=== PATIENT | male | born 1990 | race African-American/Black ===

== ENCOUNTER 2020-09-18 14:46 | Outpatient (REF) | payer OTHER, SELFPAY ==
[2020-09-18 15:32] LABS: MANUAL DIFF FLAG NO
[2020-09-18 15:33] LABS: Basophils Percent Auto 0.6 % (0-2); Eosinophils Absolute Auto 0.4 X10*3/uL (0.0-0.4); Eosinophils Percent Auto 6.9 % (0-4); Hematocrit 40.4 % (42-52); Hemoglobin 13.4 g/dl (14.0-18.0); Imm Gran Abs Auto 0.02 X10*3/uL (0.00-0.03); Imm Gran Pct Auto 0.3 % (0.0-0.4); Lymphocytes Absolute Auto 2.2 X10*3/uL (1.2-4.9); Lymphocytes Percent Auto 34.6 % (20-40); Mean Corpuscular HGB Conc 33.2 g/dl (31.0-36.0); Mean Corpuscular Hemoglobin 27.8 pg (27.0-33.0); Mean Corpuscular Volume 83.8 fL (80-98); Mean Platelet Volume 10.7 fL (9.4-12.4); Monocytes Absolute Auto 0.4 X10*3/uL (0.1-1.2); Monocytes Percent Auto 6.4 % (2-11); Neutrophils Absolute Auto 3.2 X10*3/uL (2.0-8.3); Neutrophils Percent Auto 51.2 % (45-73); Platelet Count 238 X10*3/uL (160-400); Red Blood Count 4.82 X10*6/uL (4.60-5.80); Red Cell Distribution Width 13.9 % (11.0-16.0); White Blood Count 6.3 X10*3/uL (4.8-10.8)
[2020-09-18 16:06] LABS: Anion Gap 10 (12-20); Blood Urea Nitrogen 12 mg/dL (9-16); Calcium 9.4 mg/dL (8.4-10.2); Carbon Dioxide 26 mmol/L (22-29); Chloride 105 mmol/L (96-108); Cholesterol 245 mg/dL; Estimated Glomerular Filt Rate > 60; Glucose Fasting 91 mg/dL (60-99); HDL Cholesterol 39 mg/dL; LDL Cholesterol Calculated 138 mg/dl; Potassium 4.2 mmol/l (3.3-5.1); Sodium 137 mmol/L (135-145); Triglycerides 343 mg/dL
[2020-09-22 10:02] LABS: Levetiracetam Keppra 30.5 mcg/mL (12.0-46.0)
== END 2020-09-18 14:47 | disposition home or self-care (01) ==
LOC: HO.LAB 14:46
PROVIDERS: Absent Provider Nurse Practitioner Family; PCP Internal Medicine; Visit Provider Psychiatry & Neurology Neurology
DX: G40.909 Epilepsy, unspecified, not intractable, without status epilepticus (principal); Z98.890 Other specified postprocedural states; Z09 Encounter for follow-up examination after completed treatment for conditions other than malignant neoplasm
CPT/HCPCS: 36415; 80048; 80061; 80177; 80185; 85025

== ENCOUNTER → 2020-11-07 08:12 | Outpatient (BNVA) | payer OTHER, SELFPAY | PROVIDERS: PCP Internal Medicine; Visit Provider Nurse Practitioner Family | DX: L90.5 Scar conditions and fibrosis of skin (principal); S02.6 Fracture of mandible; G57.71 Causalgia of right lower limb | CPT/HCPCS: 99202 ==

== ENCOUNTER → 2020-11-21 14:38 | Outpatient (BNVA) | payer OTHER, SELFPAY | PROVIDERS: PCP Internal Medicine; Visit Provider Nurse Practitioner Family ==

== ENCOUNTER 2021-02-07 15:20 | Outpatient (REF) | payer OTHER, SELFPAY ==
--- NOTE | ~2021-02-07 | CT_ITS ---
EXAMINATION: CT HEAD WITHOUT CONTRAST CLINICAL INFORMATION: Seizure disorder COMPARISON: Previous head CT March 2019 TECHNIQUE: Contiguous axial imaging was performed from the skull base to vertex without intravenous administration of contrast. This CT examination was performed using dose optimization techniques as appropriate, variously including the following: *Automated exposure control *Adjustment of mA and/or kV according to patient size (this includes techniques or standardized protocols for targeted exams where dose is matched to indication/reason for exam; i.e. extremities or head) *Use of iterative reconstruction technique DLP: 736 mGy-cm FINDINGS: There is no evidence of acute intracranial hemorrhage or territorial infarction. No abnormal mass effect or midline shift is seen. Hartley to white matter differentiation is well preserved. No extra-axial fluid collections are identified. The ventricles are normal in size. There is no abnormal attenuation within the brain parenchyma. The osseous structures and soft tissues are normal. There are mild inflammatory changes of the left frontal and bilateral ethmoid sinuses. The mastoid air cells and visualized portions of the paranasal sinuses are otherwise clear. CT/CT head/brain wo con IMPRESSION: No acute intracranial findings. Mild inflammatory change of the left frontal and bilateral ethmoid sinuses.
== END 2021-02-07 15:21 | disposition home or self-care (01) ==
LOC: HO.CT 15:20
PROVIDERS: PCP Internal Medicine; Visit Provider Psychiatry & Neurology Neurology
DX: G40.909 Epilepsy, unspecified, not intractable, without status epilepticus (principal)
CPT/HCPCS: 70450

== ENCOUNTER 2021-04-05 08:59 | Outpatient (RCR) | payer OTHER, SELFPAY | END 2021-05-01 15:05 | disposition home or self-care (01) | LOC: HO.WCC 08:59 | PROVIDERS: PCP Internal Medicine; Visit Provider Surgery | DX: T81.31XA Disruption of external operation (surgical) wound, not elsewhere classified, initial encounter (principal); S81.801A Unspecified open wound, right lower leg, initial encounter | CPT/HCPCS: 11042; 11045; 97597; 99212 ==

== ENCOUNTER 2021-05-02 11:53 | Outpatient (REF) | payer OTHER, SELFPAY ==
[2021-05-02 12:50] LABS: MANUAL DIFF FLAG NO
[2021-05-02 13:05] LABS: Basophils Percent Auto 0.4 % (0-2); Eosinophils Absolute Auto 0.5 X10*3/uL (0.0-0.4); Eosinophils Percent Auto 6.2 % (0-4); Hematocrit 43.1 % (42-52); Imm Gran Abs Auto 0.03 X10*3/uL (0.00-0.03); Imm Gran Pct Auto 0.4 % (0.0-0.4); Lymphocytes Absolute Auto 2.2 X10*3/uL (1.2-4.9); Lymphocytes Percent Auto 28.1 % (20-40); Mean Corpuscular HGB Conc 34.8 g/dl (31.0-36.0); Mean Corpuscular Hemoglobin 30.2 pg (27.0-33.0); Mean Corpuscular Volume 86.9 fL (80-98); Mean Platelet Volume 10.4 fL (9.4-12.4); Monocytes Absolute Auto 0.6 X10*3/uL (0.1-1.2); Monocytes Percent Auto 7.4 % (2-11); Neutrophils Absolute Auto 4.5 X10*3/uL (2.0-8.3); Neutrophils Percent Auto 57.5 % (45-73); Platelet Count 212 X10*3/uL (160-400); Red Blood Count 4.96 X10*6/uL (4.60-5.80); Red Cell Distribution Width 13.6 % (11.0-16.0); White Blood Count 7.8 X10*3/uL (4.8-10.8)
[2021-05-02 13:56] LABS: Alanine Aminotransferase 25 U/L (0-40); Albumin Level 4.7 g/dL (3.5-5.0); Alkaline Phosphatase 85 U/L (39-117); Anion Gap 13 (12-20); Aspartate Amino Transferase 19 U/L (5-37); Bilirubin Total 0.2 mg/dL (0.0-1.0); Blood Urea Nitrogen 14 mg/dL (9-16); Calcium 9.7 mg/dL (8.4-10.2); Carbon Dioxide 21 mmol/L (22-29); Chloride 106 mmol/L (96-108); Cholesterol 230 mg/dL; Estimated Glomerular Filt Rate > 60; Glucose Fasting 97 mg/dL (60-99); HDL Cholesterol 32 mg/dL; LDL Cholesterol Calculated 139 mg/dl; Potassium 4.3 mmol/L (3.3-5.1); Sodium 136 mmol/L (135-145); Total Protein 7.5 g/dL (6.5-8.0); Triglycerides 295 mg/dL
[2021-05-06 17:46] LABS: Levetiracetam Keppra 28.6 mcg/mL (12.0-46.0)
[2021-05-07 15:11] LABS: Testosterone, Free 69.2 pg/mL (35.0-155.0); Testosterone, Total 923 ng/dL (250-1100)
== END 2021-05-02 11:54 | disposition home or self-care (01) ==
LOC: HO.LAB 11:53
PROVIDERS: Absent Provider Internal Medicine; PCP Internal Medicine; Visit Provider Psychiatry & Neurology Neurology
DX: E78.2 Mixed hyperlipidemia (principal); E78.5 Hyperlipidemia, unspecified; N52.9 Male erectile dysfunction, unspecified; G40.909 Epilepsy, unspecified, not intractable, without status epilepticus
CPT/HCPCS: 36415; 80053; 80061; 80177; 80185; 84402; 84403; 85025

== ENCOUNTER 2021-06-18 13:44 | Outpatient (RCR) | payer OTHER, SELFPAY ==
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
== END 2021-07-04 13:36 | disposition home or self-care (01) ==
LOC: HO.WCC 13:44
PROVIDERS: PCP Internal Medicine; Visit Provider Physician Assistant
DX: T81.31XA Disruption of external operation (surgical) wound, not elsewhere classified, initial encounter (principal); R13.10 Dysphagia, unspecified; G40.909 Epilepsy, unspecified, not intractable, without status epilepticus; N18.9 Chronic kidney disease, unspecified; E46 Unspecified protein-calorie malnutrition
CPT/HCPCS: 11042; 70100; 99213

== ENCOUNTER 2021-09-18 08:59 | Outpatient (REF) | payer OTHER, SELFPAY ==
[2021-09-18 10:34] LABS: Alanine Aminotransferase 27 U/L (0-40); Albumin Level 4.6 g/dL (3.5-5.0); Alkaline Phosphatase 90 U/L (39-117); Anion Gap 17 (12-20); Aspartate Amino Transferase 23 U/L (5-37); Bilirubin Total < 0.2 mg/dL (0.0-1.0); Blood Urea Nitrogen 9 mg/dL (9-16); Calcium 9.6 mg/dL (8.4-10.2); Carbon Dioxide 20 mmol/L (22-29); Chloride 105 mmol/L (96-108); Cholesterol 167 mg/dL; Estimated Glomerular Filt Rate > 60; Glucose Fasting 94 mg/dL (60-99); HDL Cholesterol 38 mg/dL; LDL Cholesterol Calculated 109 mg/dl; Potassium 3.8 mmol/L (3.3-5.1); Sodium 138 mmol/L (135-145); Total Protein 7.7 g/dL (6.5-8.0); Triglycerides 101 mg/dL
[2021-09-19 22:57] LABS: Phenytoin, Free/Unbound 0.8 mg/L (1.0-2.0)
[2021-09-22 05:52] LABS: Levetiracetam Keppra 7.2 mcg/mL (12.0-46.0)
== END 2021-09-18 09:00 | disposition home or self-care (01) ==
LOC: HO.LAB 08:59
PROVIDERS: PCP Internal Medicine; Visit Provider Internal Medicine
DX: E78.5 Hyperlipidemia, unspecified (principal); R56.9 Unspecified convulsions
CPT/HCPCS: 36415; 80053; 80061; 80177; 80186

== ENCOUNTER → 2021-09-25 12:51 | Outpatient (BNVA) | payer OTHER, SELFPAY | PROVIDERS: PCP Internal Medicine; Visit Provider Nurse Practitioner Family | DX: L90.5 Scar conditions and fibrosis of skin (principal); S02.6 Fracture of mandible; S81.801D Unspecified open wound, right lower leg, subsequent encounter | CPT/HCPCS: 99212 ==

== ENCOUNTER → 2021-10-03 13:46 | Outpatient (BNVA) | payer OTHER, SELFPAY | PROVIDERS: PCP Internal Medicine; Visit Provider Urology | DX: N52.9 Male erectile dysfunction, unspecified (principal); R35.1 Nocturia | CPT/HCPCS: 51798; 99202 ==

== ENCOUNTER 2021-10-03 14:04 | Outpatient (REF) | payer OTHER, SELFPAY ==
[2021-10-03 15:19] LABS: COVID-19 Test Negative (Negative)
== END 2021-10-03 14:05 | disposition home or self-care (01) ==
LOC: HO.LAB 14:04
PROVIDERS: Visit Provider Internal Medicine
DX: Z20.822 Contact with and (suspected) exposure to COVID-19 (principal)
CPT/HCPCS: 87635; C9803

== ENCOUNTER 2021-11-02 15:00 | Outpatient (REF) | payer OTHER, SELFPAY ==
[2021-11-02 15:56] LABS: COVID-19 Test Negative (Negative); IDNOW Serial# 16C4AD1C
== END 2021-11-02 15:01 | disposition home or self-care (01) ==
LOC: HO.LAB 15:00
PROVIDERS: PCP Internal Medicine; Visit Provider Internal Medicine
DX: Z20.822 Contact with and (suspected) exposure to COVID-19 (principal)
CPT/HCPCS: 87635; C9803

== ENCOUNTER 2021-11-30 08:00 | Outpatient (RCR) | payer OTHER, SELFPAY | END 2021-11-30 09:27 | disposition home or self-care (01) | LOC: HO.WCC 08:00 | PROVIDERS: PCP Internal Medicine; Visit Provider Physician Assistant | DX: M79.661 Pain in right lower leg (principal); M62.82 Rhabdomyolysis | CPT/HCPCS: 99213 ==

== ENCOUNTER 2021-12-09 14:00 | Day surgery (SDC) | payer OTHER, SELFPAY ==
[2021-12-09] VITALS (9 sets, daily range): BP systolic 108–144; BP diastolic 65–92; PULSE 73–91; RESP 16–20; TEMP 36.1–37.1; O2SAT 96–100; BMI 27.4
--- NOTE | ~2021-12-09 | CT_ITS ---
EXAMINATION: CT ABDOMEN AND PELVIS WITHOUT CONTRAST CLINICAL INFORMATION: Abdominal pain. COMPARISON: None TECHNIQUE: Multidetector volumetric imaging was performed from the superior aspect of the liver through the pubic symphysis. Sagittal and coronal reformatted images were obtained on the technologist's workstation. This CT examination was performed using dose optimization techniques as appropriate, variously including the following: *Automated exposure control *Adjustment of mA and/or kV according to patient size (this includes techniques or standardized protocols for targeted exams where dose is matched to indication/reason for exam; i.e. extremities or head) *Use of iterative reconstruction technique DLP: 422 mGy-cm FINDINGS: LUNG BASES: The visualized lung bases are unremarkable. LIVER, GALLBLADDER, AND BILIARY TREE: The liver is normal in size, shape, and attenuation. No focal hepatic lesion or biliary ductal dilatation is present. The gallbladder is unremarkable with no evidence of radiopaque gallstones, gallbladder wall thickening, or obvious pericholecystic inflammatory changes. PANCREAS: Unremarkable. SPLEEN: Unremarkable. ADRENAL GLANDS: Unremarkable. KIDNEYS AND URETERS: The kidneys are normal in size, shape, and attenuation. No hydronephrosis, hydroureter, or calculi seen. No perinephric stranding. BLADDER: Unremarkable. GASTROINTESTINAL TRACT: The tip of the appendix is markedly thickened, measures 1.4 cm at its maximum anteroposterior dimension, shows appendicolith. Significant periappendiceal inflammatory changes are identified. Multiple radiopaque densities are seen also within the base of the cecum. There is no evidence of any periappendiceal fluid collection or extraluminal air identified. The findings are consistent with acute uncomplicated appendicitis. ABDOMINAL WALL: No significant hernia is appreciated. LYMPH NODES: Normal. VASCULAR: Unremarkable. PELVIC VISCERA: There is no free fluid and/or free air present. OSSEOUS STRUCTURES: Mild diffuse osteopenia is noted, somewhat unusual for this patient's age, indeterminate etiology. CT/CT abdomen pelvis wo con IMPRESSION: 1. Abnormal noncontrast CT scan of the abdomen and pelvis showing features of acute uncomplicated appendicitis. 2. Mild diffuse osteopenia, unusual forget this patient's age, indeterminate etiology. This critical result was discussed with Virginia Ku NP at 5:38 PM on 12/09/2021 and it was ascertained that the content and urgency of the report was understood at the time of direct communication.
--- NOTE | 2021-12-09 16:30 | ED_ITS ---
HPI - Abdominal Pain General Chief Complaint: Abdominal Pain Stated Complaint: severe abd pain Time Seen by Provider: 12/09/21 14:42 Source: patient Mode of arrival: ambulatory Limitations: language barrier History of Present Illness HPI narrative: 31-year-old male presents with 2 days of sharp intermittent epigastric pain that radiates down the left side of his abdomen. States that it feels like there is ants crawling around and pinching him inside. MD elicited complaint: abdominal pain Pertinent past history: constipation Onset (ago): day(s) (2) Pain Consistency: intermittent Location: epigastric, LUQ and LLQ Severity: severe Pain scale (0-10): 10 Quality: aching, sharp and other (Pinching) Migration to: no migration Exacerbating factors: eating and movement Relieving factors: nothing Context: history of similar episodes Associated symptoms: denies other symptoms Treatments prior to arrival: antacids Related Data Home Medications Medication Instructions Recorded Confirmed gabapentin 600 mg tablet 600 mg PO TID PRN 11/07/20 12/09/21 aspirin 81 mg chewable tablet 81 mg PO DAILY 12/09/21 12/09/21 levetiracetam 1,000 mg tablet 1,000 mg PO BID 12/09/21 12/09/21 sildenafil 100 mg tablet 100 mg PO DAILY PRN 12/09/21 12/09/21 Previous Rx's Medication Instructions Recorded famotidine 20 mg tablet 20 mg PO BID 90 Days #180 tab 09/21/20 calcium carbonate 200 mg calcium 200 mg PO TID PRN #90 tab 04/29/21 (500 mg) chewable tablet phenytoin sodium extended 100 mg 200 mg PO BID 90 Days #360 cap 05/29/21 capsule atorvastatin 40 mg tablet 40 mg PO BEDTIME 90 Days #90 tab 06/07/21 fenofibrate 54 mg tablet 54 mg PO DAILY 90 Days #90 tab 06/07/21 Allergies Allergy/AdvReac Type Severity Reaction Status Date / Time iv contrast AdvReac Severe vomiting Uncoded 12/09/21 19:41 Review of Systems Review of Systems Constitutional: No Weight loss, No Fever, No Chills, No Night Sweats, No Fatigue, No Malaise ENT/Mouth: No Hearing loss, No Ear Pain, No Nasal Congestion, No Sinus Pain, No Hoarseness, No sore throat, No Rhinorrhea, No Swallowing Difficulty Eyes: No Eye Pain, No Swelling, No Redness, No Foreign Body, No Discharge, No Vision Changes Cardiovascular: No Chest Pain, No SOB, No Dyspnea on Exertion, No Orthopnea, No Edema, No Palpitations Respiratory: No Cough, No Sputum, No Wheezing, No Smoke Exposure, No Dyspnea Gastrointestinal: No Nausea, no Vomiting, positive Diarrhea, positive abdominal Pain, No Hematochezia, No Melena Genitourinary: no irregular bleeding, No Dysuria, No Urinary Frequency, No Hematuria, No Urinary Incontinence, No Urgency, No Flank Pain, No Urinary Flow Changes, No Hesitancy Musculoskeletal: No joint pain, No Myalgias, No Joint Swelling Skin: No Skin Lesions, No rash Neuro: No Weakness, No Numbness, No Paresthesias, No Loss of Consciousness, No Dizziness, No Headache Psych: No Anxiety/Panic, No Depression, No SI/HI/AH/VH, No Social Issues Heme/Lymph: No Bruising, No Bleeding,No Lymphadenopathy Endocrine: No Polyuria, No Polydipsia, No Temperature Intolerance Yes all other systems are reviewed and are negative [facility] Past Medical History Attestation statement: The following information was validated with the patient. Source: old records reviewed Medical History Abnormal vision Constipation by delayed colonic transit Erectile dysfunction GERD (gastroesophageal reflux disease) Leg pain Leg wound, right Mandibular fracture Mixed hyperlipidemia Seizures Surgical History History of mandibular surgery History of tracheostomy Status post surgery Family History Family History Father Medical history unknown Mother No problems noted. Social History Social History Housing: Apartment Alcohol intake: former Patient Tobacco Use Status: Never used Tobacco e-Cigarette/Vaping Use: Never Used Second Hand Smoke Exposure: No service: No Current occupational status: disabled Physical Exam ED Vital Signs: Vital Signs - 24 hr 12/09/21 14:06 Temperature 97 F Pulse Rate 84 Respiratory Rate 16 Blood Pressure 121/73 Pulse Oximetry 98 BMI result Body Mass Index 27.4 Appearance: Alert. Oriented X3. No acute distress. Eyes: Pupils equal, round and reactive to light. ENT: Pharynx normal. Neck: Normal inspection. Neck supple. CVS: Normal heart rate and rhythm. Pulses normal. Respiratory: No respiratory distress. Breath sounds normal. Abdomen: Soft and diffusely tender. Skin: Skin warm and dry. Normal skin color. Normal skin turgor. Extremities: No lower extremity edema. Moves all extremities against resistance. Neuro: No motor deficit. No sensory deficit. Cranial nerves 2-12 intact. Course Course Course Narrative: 31-year-old male presents with 10/10 epigastric pain radiating to the left upper quadrant down to his left side. States that he has had watery stools and tried to take a laxative to help him pass stools, with poor effect. 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 He is not reporting fevers or chills, is able to eat and swallow without difficulty. Will order CT scan of abdomen pelvis. Labs are pending. 17:[address] scan positive for acute appendicitis. 17:[address] Joseph regarding CT scan findings. Discussion with patient regarding need for emergent surgery. glaciologist utilized for all correspondence. MDM - Abdominal Pain Differential Diagnosis Differential diagnosis: Likely abdominal pain, acute appendicitis, constipation, diverticulitis and small bowel obstruction Medical Records Attestation: I reviewed the patient's medical records. Lab Data Attestation: I reviewed the patient's lab results. Result diagrams: 12/09/21 17:18 12/09/21 17:18 Labs: Lab Results 12/09/21 12/09/21 12/09/21 Range/Units 17:18 17:18 17:18 WBC 13.7 H (4.8-10.8) X10*3/uL RBC 4.97 (4.60-5.80) X10*6/uL Hgb 15.2 (14.0-18.0) g/dl Hct 43.7 (42.0-52.0) % MCV 87.9 (80.0-98.0) fL MCH 30.6 (27.0-33.0) pg MCHC 34.8 (31.0-36.0) g/dl RDW 12.9 (11.0-16.0) % Plt Count 186 (160-400) X10*3/uL MPV 10.0 (9.4-12.4) fL Immature Gran % (Auto) 0.4 (0.0-0.4) % Neut % (Auto) 78.6 H (45-73) % Lymph % (Auto) 14.0 L (20-40) % [place] % (Auto) 5.8 (2-11) % Eos % (Auto) 1.0 (0-4) % Baso % (Auto) 0.2 (0-2) % Lymph # (Auto) 1.9 (1.2-4.9) X10*3/uL [place] # (Auto) 0.8 (0.1-1.2) X10*3/uL Eos # (Auto) 0.1 (0.0-0.4) X10*3/uL Baso # (Auto) 0.0 (0.0-0.2) X10*3/uL Abs Immat Gran (auto) 0.05 H (0.00-0.03) X10*3/uL Absolute Neuts (auto) 10.8 H (2.0-8.3) x10*3/uL Absolute Nucleated RBC 0.000 (0.0-0.012) X10*3/uL Nucleated RBC % (auto) 0.0 (0.0-0.2) /100WBC Sodium 138 (135-145) mmol/L Potassium 4.2 (3.3-5.1) mmol/L Chloride 103 (96-108) mmol/L Carbon Dioxide 27 (22-29) mmol/L Anion Gap 12 (12-20) BUN 7 L (9-16) mg/dL Creatinine 0.85 (0.5-1.4) mg/dL Estim Creat Clear Calc 109.8 Estimated GFR > 60 Random Glucose 94 (60-115) mg/dL Calcium 9.7 (8.4-10.2) mg/dL Lipase 19 (8-78) U/L Imaging Data CT abdomen pelvis: Attestation: I personally reviewed and interpreted this imaging study as follows: Radiologist's impression: FINDINGS: LUNG BASES: The visualized lung bases are unremarkable.? LIVER, GALLBLADDER, AND BILIARY TREE: The liver is normal in size, shape, and attenuation. No focal hepatic lesion or biliary ductal dilatation is present. The gallbladder is unremarkable with no evidence of radiopaque gallstones, gallbladder wall thickening, or obvious pericholecystic inflammatory changes.? PANCREAS: Unremarkable.? SPLEEN: Unremarkable.? ADRENAL GLANDS: Unremarkable.? KIDNEYS AND URETERS: The kidneys are normal in size, shape, and attenuation. No hydronephrosis, hydroureter, or calculi seen. No perinephric stranding. ? BLADDER: Unremarkable.? GASTROINTESTINAL TRACT: The tip of the appendix is markedly thickened, measures 1.4 cm at its maximum anteroposterior dimension, shows appendicolith. Significant periappendiceal inflammatory changes are identified. Multiple radiopaque densities are seen also within the base of the cecum. There is no evidence of any periappendiceal fluid collection or extraluminal air identified. The findings are consistent with acute uncomplicated appendicitis. ABDOMINAL WALL: No significant hernia is appreciated.? LYMPH NODES: Normal. VASCULAR: Unremarkable. PELVIC VISCERA: There is no free fluid and/or free air present.? OSSEOUS STRUCTURES: Mild diffuse osteopenia is noted, somewhat unusual for this patient's age, indeterminate etiology.? CT/CT abdomen pelvis wo con IMPRESSION: ? 1. Abnormal noncontrast CT scan of the abdomen and pelvis showing features of acute uncomplicated appendicitis. 2. Mild diffuse osteopenia, unusual forget this patient's age, indeterminate etiology. ? This critical result was discussed with Virginia Hein PERMANENT MOLD SUPERVISOR at 5:38 PM on 12/09/2021 and it was ascertained that the content and urgency of the report was understood at the time of direct communication. ? ECG Data Attestation: I personally reviewed and interpreted this ECG as follows: ECG interpretation date: 12/09/21 ECG interpretation time: 17:51 Prior ECG tracings: available for review Interpretation: Vent. rate 72 BPM DE interval 168 ms QRS duration 90 ms QT/QTc 356/389 ms P-R-T axes 49 85 16 Normal sinus rhythm Normal ECG When compared with ECG of 07-APR-2019 12:25, No significant change was found Critical Care Time Critical Care Time Critical Care Time: Yes Total Critical Care Time: 35 Attestation: I have personally provided critical care time exclusive of time spent on separately billable procedures. Time includes review of laboratory data, radiology results, discussion with consultants, and monitoring for potential decompensation. Interventions were performed as documented. Discharge Plan Discharge Clinical Impression: Acute appendicitis Patient Disposition: Admitted As Inpatient Interventions: Admission Worksheet (ED) Last Done: 12/09/21 19:43 Discharge Date/Time: 12/09/21 19:45
[2021-12-09 17:23] LABS: MANUAL DIFF FLAG NO
[2021-12-09 17:24] LABS: Basophils Percent Auto 0.2 % (0-2); Eosinophils Absolute Auto 0.1 X10*3/uL (0.0-0.4); Hematocrit 43.7 % (42.0-52.0); Hemoglobin 15.2 g/dl (14.0-18.0); Imm Gran Abs Auto 0.05 X10*3/uL (0.00-0.03); Imm Gran Pct Auto 0.4 % (0.0-0.4); Lymphocytes Absolute Auto 1.9 X10*3/uL (1.2-4.9); Mean Corpuscular HGB Conc 34.8 g/dl (31.0-36.0); Mean Corpuscular Hemoglobin 30.6 pg (27.0-33.0); Mean Corpuscular Volume 87.9 fL (80.0-98.0); Monocytes Absolute Auto 0.8 X10*3/uL (0.1-1.2); Monocytes Percent Auto 5.8 % (2-11); Neutrophils Absolute Auto 10.8 x10*3/uL (2.0-8.3); Neutrophils Percent Auto 78.6 % (45-73); Platelet Count 186 X10*3/uL (160-400); Red Blood Count 4.97 X10*6/uL (4.60-5.80); Red Cell Distribution Width 12.9 % (11.0-16.0); White Blood Count 13.7 X10*3/uL (4.8-10.8)
--- NOTE | 2021-12-09 17:42 | ECG_ITS ---
Test Reason : abdominal pain Blood Pressure : / mmHG Vent. Rate : 072 BPM Atrial Rate : 072 BPM P-R Int : 168 ms QRS Dur : 090 ms QT Int : 356 ms P-R-T Axes : 049 085 016 degrees QTc Int : 389 ms Normal sinus rhythm Normal ECG When compared with ECG of 07-APR-2019 12:25, No significant change was found Referred By: Virginia Hein Electronically Signed By:ALLIE LEONARDO
[2021-12-09 17:44] LABS: Anion Gap 12 (12-20); Blood Urea Nitrogen 7 mg/dL (9-16); Calcium 9.7 mg/dL (8.4-10.2); Carbon Dioxide 27 mmol/L (22-29); Chloride 103 mmol/L (96-108); Creatinine Clr Calc Pharmacy 109.8; Estimated Glomerular Filt Rate > 60; Glucose Random 94 mg/dL (60-115); Potassium 4.2 mmol/L (3.3-5.1); Sodium 138 mmol/L (135-145)
[2021-12-09 17:45] LABS: Lipase 19 U/L (8-78)
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
[2021-12-09 19:26] LABS: INTERNATIONAL NORM RATIO 1.2 (0.9-1.1); Prothrombin Time 13.3 SEC (9.9-13.0)
[2021-12-09 19:28] LABS: Partial Thromboplastin Time 37.8 SEC (24.1-38.0)
[2021-12-09 19:35] LABS: COVID-19 Test Negative (Negative); IDNOW Serial# 16C4AD1C
--- NOTE | 2021-12-09 19:43 | PHA.MEDREC ---
Pharmacy Consult ? Medication Reconciliation Pharmacy has completed the medication reconciliation.COMPLETED WITH USE OF MEN'S AND BOYS' CLOTHING SALESPERSON, PT AND CAREGIVER. PT COULD NOT TOLERATE THE LIQUID PRESCRIPTIONS HE WAS ORDERED SO IS BACK ON THE TABLETS. HE CRUSHES THE ONES HE CAN. HE KNOWS NOT TO CRUSH PHENYTOIN. IT IS SMALL ENOUGH FOR HIM TO SWALLOW
--- NOTE | 2021-12-09 19:51 | HO.ANESPROP2 ---
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 Family history of problems with anesthesia: No Surgical History Surgical History History of mandibular surgery History of tracheostomy Status post surgery History of Problems with Anesthesia: No Social History Social History Housing: Apartment Alcohol intake: former Patient Tobacco Use Status: Never used Tobacco e-Cigarette/Vaping Use: Never Used Second Hand Smoke Exposure: No service: No Current occupational status: disabled Meds Allergies Allergy/AdvReac Type Severity Reaction Status Date / Time iv contrast AdvReac Severe vomiting Uncoded 12/09/21 19:41 Active Medications: Current Medications Lactated Ringer's (Lr) 1,000 mls @ 100 mls/hr IVCONT .Q10H GONZALEZ Ondansetron HCl (Ondansetron Hcl 4 Mg/2 Ml Vial) 4 mg IVPUSH QID PRN PRN Reason: Nausea Home Medications Medication Instructions Recorded Confirmed Last Taken Type gabapentin 600 mg tablet 600 mg PO TID PRN 11/07/20 12/09/21 Unknown History aspirin 81 mg chewable tablet 81 mg PO DAILY 12/09/21 12/09/21 Unknown History levetiracetam 1,000 mg tablet 1,000 mg PO BID 12/09/21 12/09/21 Unknown History sildenafil 100 mg tablet 100 mg PO DAILY PRN 12/09/21 12/09/21 Unknown History Exam Exam Date and Time: December 09, 20211950 Height,Weight and Vital Signs: Height 5 ft 3 in Weight 70.307 kg Last Vital Signs Temp 98.4 F 12/09/21 18:53 Pulse 73 12/09/21 18:53 Resp 16 12/09/21 18:53 BP 108/65 12/09/21 18:53 Pulse Ox 97 12/09/21 18:53 Pertinent Lab Results Pertinent Lab Results: Laboratory Tests 12/09/21 12/09/21 12/09/21 17:18 17:18 17:18 WBC 13.7 H RBC 4.97 Hgb 15.2 Hct 43.7 MCV 87.9 MCH 30.6 MCHC 34.8 RDW 12.9 Plt Count 186 MPV 10.0 Immature Gran % (Auto) 0.4 Neut % (Auto) 78.6 H Lymph % (Auto) 14.0 L Johnson % (Auto) 5.8 Eos % (Auto) 1.0 Baso % (Auto) 0.2 Lymph # (Auto) 1.9 Johnson # (Auto) 0.8 Eos # (Auto) 0.1 Baso # (Auto) 0.0 Abs Immat Gran (auto) 0.05 H Absolute Neuts (auto) 10.8 H Absolute Nucleated RBC 0.000 Nucleated RBC % (auto) 0.0 PT INR APTT Sodium 138 Potassium 4.2 Chloride 103 Carbon Dioxide 27 Anion Gap 12 BUN 7 L Creatinine 0.85 Estim Creat Clear Calc 109.8 Estimated GFR > 60 Random Glucose 94 Lactic Acid Calcium 9.7 Lipase 19 COVID-19 (JENNIFER) COVID-19 Clin Com 12/09/21 12/09/21 12/09/21 19:12 19:12 19:12 WBC RBC Hgb Hct MCV MCH MCHC RDW Plt Count MPV Immature Gran % (Auto) Neut % (Auto) Lymph % (Auto) Johnson % (Auto) Eos % (Auto) Baso % (Auto) Lymph # (Auto) Johnson # (Auto) Eos # (Auto) Baso # (Auto) Abs Immat Gran (auto) Absolute Neuts (auto) Absolute Nucleated RBC Nucleated RBC % (auto) PT 13.3 H INR 1.2 H APTT 37.8 Sodium Potassium Chloride Carbon Dioxide Anion Gap BUN Creatinine Estim Creat Clear Calc Estimated GFR Random Glucose Lactic Acid 1.0 Calcium Lipase COVID-19 (JENNIFER) COVID-19 Clin Com 12/09/21 19:12 WBC RBC Hgb Hct MCV MCH MCHC RDW Plt Count MPV Immature Gran % (Auto) Neut % (Auto) Lymph % (Auto) Johnson % (Auto) Eos % (Auto) Baso % (Auto) Lymph # (Auto) Johnson # (Auto) Eos # (Auto) Baso # (Auto) Abs Immat Gran (auto) Absolute Neuts (auto) Absolute Nucleated RBC Nucleated RBC % (auto) PT INR APTT Sodium Potassium Chloride Carbon Dioxide Anion Gap BUN Creatinine Estim Creat Clear Calc Estimated GFR Random Glucose Lactic Acid Calcium Lipase COVID-19 (JENNIFER) Negative COVID-19 Clin Com See Note Airway Mallampati Class: III Neck ROM: Full Assessment and Plan Assessment Anesthesia Assessment: Anesthesia Plan Discussed and Chart Reviewed Final Anesthetic Review Family History of Problems with Anesthesia: No History of Problems with Anesthesia: No NPO: Yes ASA Class: III and Emergency Final Preanesthetic Review: No Changes in Pt Med Stat, Meds/Allgs Chart Reviewed, Consent Obtained/Reviewed and Anes Risks/Benef Reviewed Patient Risk: Intermediate Procedure Risk: Intermediate Anesthetic Plan Anesthetic Plan: GA Disposition: Standard PACU
--- NOTE | 2021-12-09 20:53 | W.PM.OPN ---
Operative Note Operative Note Date of Service: 12/09/21 Narrative: Preoperative diagnosis: Acute appendicitis Postoperative diagnosis: Same Procedure: Laparoscopic appendectomy Surgeon: Mook Joseph MD Office Systems Technology Instructor:none Anesthesia: General endotracheal Indications for procedure: 31-year-old male patient with a 2 day history of abdominal pain in the left lower and right lower quadrants found to be tender in the right lower quadrant over McBurney's point. Workup revealed an elevated WBC and CT of the abdomen revealed a thickened inflamed appendix suggestive of acute appendicitis Operative findings: Acute appendicitis with the appendix located in a retrocecal location; no evidence of perforation or abscess. Specimen: Appendix Estimated blood loss: 2 cc Complications: None Procedure details: Patient was brought to the OR and placed in a supine position. After administering general anesthesia the patient's abdomen was prepped with ChloraPrep and draped in a sterile fashion. A surgical time-out was called and consent confirmed. Patient received preoperative antibiotics and Venodyne boots were in place. Local anesthesia consisting of 0.75% Sensorcaine with epinephrine was infiltrated in periumbilical region. A 5 mm incision was made below the umbilicus and carried down through subcutaneous tissue. A Veress needle was then inserted while elevating abdominal cavity with towel clips. After a positive drop test the abdomen was insufflated to a pressure of 15 mm of mercury. The Veress needle was removed and a 5 mm trocar inserted. The camera was then inserted in the abdomen explored. A 2nd 5 mm trocars placed in the lower midline. A 12 mm trocar was then placed in the left lower quadrant. The patient was then placed in a Trendelenburg position and rotated to the left. The appendix was identified in the right lower quadrant and brought up using blunt dissecting clamps. The mesentery of the appendix was then divided using the LigaSure. The appendiceal artery was cauterized and divided using the LigaSure. Dissection was continued down to the base of the cecum. An Endo-JAMES stapler with a purple reload was then used to divide the appendix at the base with the cecum. The appendix was then placed in Endo-Catch bag and brought out through the left lower quadrant incision. The abdomen was then irrigated with saline solution and suctioned dry. Wounds were checked for hemostasis. CO2 was then evacuated from the abdominal cavity and all trocars removed. Fascia was closed in the left lower quadrant incision using a [id number] 0 Polysorb suture. Skin was closed at all incisions using a subcuticular 4-0 Polysorb suture. Steri-Strips 2 x 2 gauze and Tegaderm were then applied. The patient tolerated the procedure well. Sponge, instrument, needle counts reported as correct. The patient was transferred to PACU in stable condition.
[2021-12-09] MEDS: ondansetron HCL 4 MG/2 ML VIAL IVPUSH (21:15)
[2021-12-09] MEDS: fentaNYL citrate/PF 100 MCG/2 ML VIAL 50 MCG IVPUSH ×2 (21:18→21:25)
--- NOTE | 2021-12-09 21:51 | PC.NURSE ---
PATIENT CALLING FAMILY. BRICK VENEER MAKER UPDATED PATIENT INSISTING LEAVE AMA. FAMILY ATTEMPT TO ENCOURAGE STAY IN HOSPITAL. PATIENT PULLING AT IV TUBING AND MONITOR TO REMOVE. I AM OUT OF HERE . FAMILY COMING TO FOLDING MACHINE TENDER PATIENT.
--- NOTE | 2021-12-09 21:59 | PC.NURSE ---
I WAS IN PAIN FOR 2 DAYS. YOU REMOVED THE PAIN. I WANT TO GO HOME
--- NOTE | 2021-12-09 22:12 | PC.NURSE ---
221 PATIENT TRANSPORTED TO FRONT ENTRANCE VIA WHEELCHAIR RELATED TO PHYSICAL DISABILITY. PATIENT GOT INTO FATHER'S CAR. ATTEMPT MADE RN, TANK WAGON OPERATOR, SUPERVISOR RECORD PRESS TO INFORM FATHER OF NEED TO BRING PATIENT TO E.R. WITH ANY COMPLICATIONS. PATIENT HOPPED INTO EVENING OR NIGHT NURSE SUPERVISOR'S SEAT AND PROCEEDED TO LEAVE IN MOTOR VEHICLE. SECURITY NOTIFIED OF PATIENT LEAVING AMA AND TAKING FAMILY VEHICLE. PATIENT RETURNED MOMENTS LATER AND FAMILY TAKING OVER CARE.
== END 2021-12-09 22:10 | disposition left against medical advice (07) ==
LOC: HO.ED 18:36 → HO.SSS 12-10 03:23
PROVIDERS: Nurse Practitioner Family; Emergency Provider Internal Medicine; Visit Provider Surgery
PROC: 0DTJ4ZZ Resection of Appendix, Percutaneous Endoscopic Approach (ICD-10-PCS; CPT 44970; principal; 2021-12-09 18:50)
DX: K35.80 Unspecified acute appendicitis (principal); K59.00 Constipation, unspecified; H53.9 Unspecified visual disturbance; R56.9 Unspecified convulsions; K21.9 Gastro-esophageal reflux disease without esophagitis; E78.5 Hyperlipidemia, unspecified; Z98.890 Other specified postprocedural states; Z20.822 Contact with and (suspected) exposure to COVID-19; Z91.041 Radiographic dye allergy status; Z87.81 Personal history of (healed) traumatic fracture; Z79.82 Long term (current) use of aspirin; Z79.02 Long term (current) use of antithrombotics/antiplatelets; Z79.899 Other long term (current) drug therapy
CPT/HCPCS: 44970; 36415; 74176; 80048; 80053; 83605; 83690; 85025; 85610; 85730; 87040; 87635; 88304; 93005; 96361; 96365; 96375; 99285; 99291; J0131; J1100; J1170; J1885; J2250; J2270; J2405; J3010

== ENCOUNTER 2021-12-09 23:37 | Inpatient (IN) | payer OTHER, SELFPAY ==
[2021-12-10] VITALS (12 sets, daily range): BP systolic 108–131; BP diastolic 65–94; PULSE 64–91; RESP 14–20; TEMP 36.4–37.3; O2SAT 95–98; BMI 27.4
--- NOTE | 2021-12-10 00:12 | ECG_ITS ---
Test Reason : chest pain Blood Pressure : / mmHG Vent. Rate : 083 BPM Atrial Rate : 083 BPM P-R Int : 160 ms QRS Dur : 092 ms QT Int : 356 ms P-R-T Axes : 056 085 025 degrees QTc Int : 418 ms Normal sinus rhythm Normal ECG No significant changes when compared with the previous EKG of 09 december 2021. Referred By: Generic ED Physician Electronically Signed By:ALLIE LEONARDO
--- NOTE | 2021-12-10 01:30 | ED_ITS ---
HPI - General Adult General Chief complaint: General Medical Stated complaint: Pain/Bleeding after Surgery Time Seen by Provider: 12/10/21 01:30 Source: patient and family Mode of arrival: ambulatory Limitations: language barrier ( Salvadorean speaking only, mining engineer used) History of Present Illness HPI narrative: 31-year-old male who was admitted on 12/09/2021 for acute appendicitis, he had a laparoscopic appendectomy performed by Dr. Joseph. Apparently, the surgeon wanted to keep the patient overnight for pain management however the patient felt better and wanted to go home. According to his father, the patient left the hospital at around 22:00 hours. When he got home and lie down at around 23:00 hours, his pain was severe. He states that since then he has had constant, severe, diffuse abdominal pain. The pain is worse however in the right upper and right lower quadrants of his abdomen. He describes the pain as a constant, stabbing/sharp pain which is 10/10. The pain does radiate to his ri ght shoulder. He states that since leaving the hospital he has not had any flatus and he has not had a bowel movement. He does feel distended. he denied fever, nausea, vomiting. He states he does feel bloated. The patient states that he took his seizure medications yesterday morning but did not take his evening doses yet. The patient takes Keppra 1000 mg twice a day and diltiazem 200 mg twice a day. Related Data Home Medications Medication Instructions Recorded Confirmed gabapentin 600 mg tablet 600 mg PO TID PRN 11/07/20 12/10/21 aspirin 81 mg chewable tablet 81 mg PO DAILY 12/09/21 12/10/21 levetiracetam 1,000 mg tablet 1,000 mg PO BID 12/09/21 12/10/21 sildenafil 100 mg tablet 100 mg PO DAILY PRN 12/09/21 12/10/21 Previous Rx's Medication Instructions Recorded famotidine 20 mg tablet 20 mg PO BID 90 Days #180 tab 09/21/20 calcium carbonate 200 mg calcium 200 mg PO TID PRN #90 tab 04/29/21 (500 mg) chewable tablet phenytoin sodium extended 100 mg 200 mg PO BID 90 Days #360 cap 05/29/21 capsule atorvastatin 40 mg tablet 40 mg PO BEDTIME 90 Days #90 tab 06/07/21 fenofibrate 54 mg tablet 54 mg PO DAILY 90 Days #90 tab 06/07/21 Allergies Allergy/AdvReac Type Severity Reaction Status Date / Time iv contrast AdvReac Severe vomiting Uncoded 12/09/21 19:41 Review of Systems Review of Systems: Yes all other systems are reviewed and are negative [facility] Past Medical History Medical History Abnormal vision Constipation by delayed colonic transit Erectile dysfunction GERD (gastroesophageal reflux disease) Leg pain Leg wound, right Mandibular fracture Mixed hyperlipidemia Seizures Surgical History History of mandibular surgery History of tracheostomy Status post surgery Family History Family History Father Medical history unknown Mother No problems noted. Social History Social History Housing: Apartment Alcohol intake: former Patient Tobacco Use Status: Never used Tobacco e-Cigarette/Vaping Use: Never Used Second Hand Smoke Exposure: No Advance Directives: No Advance Directives Information Provided: Yes service: No Current occupational status: disabled Physical Exam ED Vital Signs: Vital Signs - 24 hr 12/10/21 00:06 Temperature 99.1 F Pulse Rate 87 Respiratory Rate 18 Blood Pressure 110/65 Pulse Oximetry 97 BMI result Body Mass Index 27.4 Const General: cooperative and no acute distress Orientation/consciousness: oriented to person and oriented to place Limitations: no limitations [facility] Head: Yes normal to inspection, Yes normocephalic and Yes atraumatic Ears: external ears normal General nose exam: Normal external nose present Face and sinus: Yes normal facial exam Mouth: Normal oral and palatal mucosa present Throat: Yes posterior oropharynx normal Eyes General: appearance normal, both eyes and all related structures Pupils: Equal, round and reactive pupils present Neck Neck: Yes normal visual inspection, Yes no lymphadenopathy, Yes trachea midline and Yes supple Chest Chest palpation & inspection: normal inspection of the chest and normal palpation of entire chest wall Resp Effort & Inspection: normal respiratory effort and able to speak in complete sentences Auscultation: clear to auscultation bilaterally Cardio Rate: regular rate Rhythm: regular rhythm Heart sounds: S1 normal heart sound present, S2 normal heart sound present and no murmurs GI Other: Patient's abdomen appears to be slightly distended, the laparoscopic sites were dressed with gauze, the suprapubic site has some blood on the gauze but does not appear to be actively bleeding, patient does have bowel sounds, he is diffusely tender and has significant voluntary guarding, his increased tenderness with palpation of the right upper quadrant and right lower quadrant. Rectal Exam - Male: Yes Abnormal stool present General: Yes no CVA tenderness Back/Spine/Pelvis Back: no CVA tenderness Skin General skin exam: no rashes or lesions noted Neuro General: oriented to person and oriented to place Cranial nerves: Yes CN's II-XII intact bilaterally and Yes Equal, round and reactive pupils present Cognition (Neuro): normal cognition Motor exam (neuro): 5/5 motor strength present throughout Extrem General: Yes normal to inspection Psych Appearance: grossly normal Speech and movement: Normal speech and movement present Affect: normal affect Attitude: cooperative Thought process: Normal thought process present Thought content: Normal thought content present Course Course Course Narrative: 31-year-old male who had a laparoscopic appendctomy on 12/09/2021. After the surgery, the surgeon wanted to keep the patient in the hospital for pain management however the patient stated that he felt better and went home after being home for approximately 1 hour he had increased pain and return to the emergency department. At the time of my evaluation, the patient has diffuse abdominal tenderness with increased tenderness with palpation of the right upper and right lower quadrants with significant voluntary guarding. He states that his pain does radiate to his right shoulder. The patient has normal bowel sounds and does appear to be slightly distended. My impression is that his exam is consistent with focal postoperative pain. I did order laboratory evaluation to include a CBC, CMP, lipase. Patient was ordered to get morphine 4 mg IV and Zofran 4 mg IV. He was given his anti seizure medicine Keppra 1000 mg and Dilantin 200 mg orally. I will discuss admission with the covering surgeon once the patient's laboratory evaluation is available. Patient was also ordered to get lactated Ringer's at 125 cc/hour. 0228: I did discuss the patient's presentation with the covering surgeon, Dr. Joseph and he agreed to admit the patient to the hospital for further pain management and evaluation. 0403: Laboratory evaluation: Elevated WBC [id number] , CMP and lipase were unremarkable. Medical Decision Making Lab Data Result diagrams: 12/10/21 02:27 12/10/21 02:27 Labs: Lab Results 12/10/21 12/10/21 Range/Units 02:27 02:27 WBC 15.0 H (4.8-10.8) X10*3/uL RBC 4.78 (4.60-5.80) X10*6/uL Hgb 14.7 (14.0-18.0) g/dl Hct 42.2 (42.0-52.0) % MCV 88.3 (80.0-98.0) fL MCH 30.8 (27.0-33.0) pg MCHC 34.8 (31.0-36.0) g/dl RDW 12.8 (11.0-16.0) % Plt Count 213 (160-400) X10*3/uL MPV 9.9 (9.4-12.4) fL Immature Gran % (Auto) 0.5 H (0.0-0.4) % Neut % (Auto) 82.4 H (45-73) % Lymph % (Auto) 10.8 L (20-40) % Mitchell % (Auto) 5.9 (2-11) % Eos % (Auto) 0.1 (0-4) % Baso % (Auto) 0.3 (0-2) % Lymph # (Auto) 1.6 (1.2-4.9) X10*3/uL Mitchell # (Auto) 0.9 (0.1-1.2) X10*3/uL Eos # (Auto) 0.0 (0.0-0.4) X10*3/uL Baso # (Auto) 0.0 (0.0-0.2) X10*3/uL Abs Immat Gran (auto) 0.07 H (0.00-0.03) X10*3/uL Absolute Neuts (auto) 12.4 H (2.0-8.3) x10*3/uL Absolute Nucleated RBC 0.000 (0.0-0.012) X10*3/uL Nucleated RBC % (auto) 0.0 (0.0-0.2) /100WBC Sodium 139 (135-145) mmol/L Potassium 4.4 (3.3-5.1) mmol/L Chloride 103 (96-108) mmol/L Carbon Dioxide 25 (22-29) mmol/L Anion Gap 15 (12-20) BUN 9 (9-16) mg/dL Creatinine 1.05 (0.5-1.4) mg/dL Estim Creat Clear Calc 88.9 Estimated GFR > 60 Random Glucose 112 (60-115) mg/dL Calcium 9.8 (8.4-10.2) mg/dL Total Bilirubin 0.6 (0.0-1.0) mg/dL AST 18 (5-37) U/L ALT 16 (0-40) U/L Alkaline Phosphatase 88 (39-117) U/L Total Protein 7.7 (6.5-8.0) g/dL Albumin 4.6 (3.5-5.0) g/dL Lipase 21 (8-78) U/L Discharge Plan Discharge Clinical Impression: Status post appendectomy Abdominal pain Qualifiers: Abdominal location: generalized Qualified Code(s): R10.84 - Generalized abdominal pain Patient Disposition: Admitted As Inpatient
[2021-12-10] MEDS: Phenytoin Sodium Extended 100 MG CAPSULE 200 MG PO ×2 (02:11→09:24)
[2021-12-10] MEDS: levETIRAcetam 1,000 MG TABLET 1000 MG PO ×2 (02:11→09:24)
[2021-12-10 02:34] LABS: MANUAL DIFF FLAG NO
[2021-12-10] MEDS: Morphine Sulfate 4 MG/ML CARTRIDGE IVPUSH (02:34)
[2021-12-10 02:35] LABS: Basophils Percent Auto 0.3 % (0-2); Eosinophils Percent Auto 0.1 % (0-4); Hematocrit 42.2 % (42.0-52.0); Hemoglobin 14.7 g/dl (14.0-18.0); Imm Gran Abs Auto 0.07 X10*3/uL (0.00-0.03); Imm Gran Pct Auto 0.5 % (0.0-0.4); Lymphocytes Absolute Auto 1.6 X10*3/uL (1.2-4.9); Lymphocytes Percent Auto 10.8 % (20-40); Mean Corpuscular HGB Conc 34.8 g/dl (31.0-36.0); Mean Corpuscular Hemoglobin 30.8 pg (27.0-33.0); Mean Corpuscular Volume 88.3 fL (80.0-98.0); Mean Platelet Volume 9.9 fL (9.4-12.4); Monocytes Absolute Auto 0.9 X10*3/uL (0.1-1.2); Monocytes Percent Auto 5.9 % (2-11); Neutrophils Absolute Auto 12.4 x10*3/uL (2.0-8.3); Neutrophils Percent Auto 82.4 % (45-73); Platelet Count 213 X10*3/uL (160-400); Red Blood Count 4.78 X10*6/uL (4.60-5.80); Red Cell Distribution Width 12.8 % (11.0-16.0)
[2021-12-10] MEDS: ondansetron HCL 4 MG/2 ML VIAL IVPUSH (02:35)
[2021-12-10] MEDS: Lactated Ringers 1,000 ML 125 ML IVCONT (02:35)
[2021-12-10 02:59] LABS: Alanine Aminotransferase 16 U/L (0-40); Albumin Level 4.6 g/dL (3.5-5.0); Alkaline Phosphatase 88 U/L (39-117); Anion Gap 15 (12-20); Aspartate Amino Transferase 18 U/L (5-37); Bilirubin Total 0.6 mg/dL (0.0-1.0); Blood Urea Nitrogen 9 mg/dL (9-16); Calcium 9.8 mg/dL (8.4-10.2); Carbon Dioxide 25 mmol/L (22-29); Chloride 103 mmol/L (96-108); Creatinine Clr Calc Pharmacy 88.9; Estimated Glomerular Filt Rate > 60; Glucose Random 112 mg/dL (60-115); Lipase 21 U/L (8-78); Potassium 4.4 mmol/L (3.3-5.1); Sodium 139 mmol/L (135-145); Total Protein 7.7 g/dL (6.5-8.0)
[2021-12-10] MEDS: HYDROmorphone HCl 1 MG/ML SYRINGE IVPUSH (04:39)
--- NOTE | 2021-12-10 06:07 | PC.NURSE ---
pt has 3 surgical sites, one @ umbilicus which has serosanguinous drainage, bilateral lower abd wound site dressings are clean dry and intact.
--- NOTE | 2021-12-10 07:30 | PM.HPGS ---
History of Present Illness History of Present Illness Date of Service: 12/10/21 Chief complaint: s/p laparoscopic appendectomy Narrative: Dhruv Romero is a 31 year old male admitted on 12/09/2021 for acute appendicitis, status post laparoscopic appendectomy on 12/09/2021. The patient decided to leave the hospital against medical advice from the recovery room but subsequently returned to the emergency department because of increased abdominal pain. Being admitted through the emergency department for pain control, status post laparoscopic appendectomy postoperative day 1. Review of Systems Constitutional: Constitutional: Denies chills, Denies fever(s), Denies headache(s) and Denies poor appetite ENT: Denies dizziness and Denies headache(s) Cardiovascular: Cardiovascular: Denies chest pain, Denies rapid heart rate, Denies palpitations and Denies slow heart rate Respiratory: Respiratory: Denies chest congestion, Denies cough, Denies pain on inspiration and Denies wheezing Gastrointestinal: Gastrointestinal: Reports as per HPI, Reports abdominal pain, Denies bloating, Denies change in stool character, Denies constipation, Denies diarrhea, Denies nausea, Denies vomiting and Denies hematemesis Musculoskeletal: Musculoskeletal: Denies back pain, Denies arthralgias, Denies joint swelling and Denies numbness Integumentary/Breasts: Skin/Breast: Denies change in pigmentation, Denies erythema and Denies rash Neurologic: Denies dizziness, Denies headache(s) and Denies numbness Psychiatric: Psychiatric: Denies anxiety and Denies depression Endocrine: Endocrine: Denies palpitations Hematologic/Lymphatic: Hematologic/Lymphatic: Denies easy bleeding, Denies easy bruising and Denies lymphadenopathy Allergic/Immunologic: Allergic/Immunologic: Denies wheezing PMFSH Past Medical History Medical History Abnormal vision Constipation by delayed colonic transit Erectile dysfunction GERD (gastroesophageal reflux disease) Leg pain Leg wound, right Mandibular fracture Mixed hyperlipidemia Seizures Family History Family History Father Medical history unknown Mother No problems noted. Surgical History Surgical History History of mandibular surgery History of tracheostomy Status post surgery Social History Social History Housing: Apartment Alcohol intake: former Patient Tobacco Use Status: Never used Tobacco e-Cigarette/Vaping Use: Never Used Second Hand Smoke Exposure: No Advance Directives: No Advance Directives Information Provided: Yes service: No Current occupational status: disabled Meds Allergies Allergy/AdvReac Type Severity Reaction Status Date / Time iv contrast AdvReac Severe vomiting Uncoded 12/09/21 19:41 Active Medications: Current Medications Acetaminophen (Acetaminophen Supp 650 Mg Supp.Rect) 650 mg ND Q6H PRN PRN Reason: Pain, Mild (Pain Scale 1-3) Famotidine (Famotidine 20 Mg Tablet) 20 mg PO BID GONZALEZ Fenofibrate (Fenofibrate 54 Mg Tablet) 54 mg PO DAILY GONZALEZ Gabapentin (Gabapentin 600 Mg Tablet) 600 mg PO TID PRN PRN Reason: Mild Pain (Scale Score 1-4) Hydromorphone HCl (Hydromorphone Hcl 1 Mg/Ml Syringe) 0.5 mg IVPUSH Q2H PRN; Protocol PRN Reason: Pain, Severe (Pain Scale 7-10) Lactated Ringer's (Lr) 1,000 mls @ 125 mls/hr IVCONT .Q8H GONZALEZ Last Admin: 12/10/21 02:35 Dose: 125 mls/hr Documented by: Levetiracetam (Levetiracetam 1,000 Mg Tablet) 1,000 mg PO BID GONZALEZ Oxycodone HCl (Oxycodone Hcl Immed Release 5 Mg Tablet) 5 mg PO Q6H PRN PRN Reason: Pain, Moderate (Pain Scale 4-6 Phenytoin Sodium (Phenytoin Sodium Extended 100 Mg Capsule) 200 mg PO BID GONZALEZ Sodium Chloride (0.9 % Sodium Chloride Flush 3 Ml Syringe) 3 ml IVFLUSH QSHIFT GONZALEZ Zolpidem Tartrate (Zolpidem Tartrate 5 Mg Tablet) 5 mg PO BEDTIME PRN PRN Reason: Insomnia Home Medications Medication Instructions Recorded Confirmed Last Taken Type gabapentin 600 mg tablet 600 mg PO TID PRN 11/07/20 12/10/21 Unknown History aspirin 81 mg chewable tablet 81 mg PO DAILY 12/09/21 12/10/21 Unknown History levetiracetam 1,000 mg tablet 1,000 mg PO BID 12/09/21 12/10/21 Unknown History sildenafil 100 mg tablet 100 mg PO DAILY PRN 12/09/21 12/10/21 Unknown History Physical Exam Vital Signs: Vital Signs: Last Vital Signs Temp 98.6 F 12/10/21 07:16 Pulse 69 12/10/21 07:16 Resp 14 12/10/21 07:16 BP 108/81 12/10/21 07:16 Pulse Ox 96 12/10/21 06:26 BMI result Body Mass Index 27.4 Const: General: cooperative, comfortable and well developed Nutritional Appearance: well nourished Orientation/consciousness: patient oriented x3 Eyes: Sclerae: sclerae normal EOM: EOMs intact bilaterally Neck: Neck: Yes normal visual inspection Resp: Effort & Inspection: normal respiratory effort, no cough, no respiratory distress and no stridor Cardio: Jugular venous distension: no JVD GI: Other: Incision, clean, and intact without redness or discharge. Inspection: Yes normal to inspection Palpation (GI): Soft to palpation, Tenderness to palpation present (GI) (incision), no guarding and not rigid Skin: General skin exam: dry skin Rashes: no rashes Neuro: General: patient oriented x3 and no focal motor deficits Extrem: General: Yes full ROM and Yes no clubbing, cyanosis or edema Psych: Appearance: grossly normal Results Results Labs: Short CBC 12/10/21 Range/Units 02:27 WBC 15.0 H (4.8-10.8) X10*3/uL Hgb 14.7 (14.0-18.0) g/dl Hct 42.2 (42.0-52.0) % Plt Count 213 (160-400) X10*3/uL [facility] 12/10/21 02:27 Sodium 139 Potassium 4.4 Chloride 103 Carbon Dioxide 25 BUN 9 Creatinine 1.05 Calcium 9.8 Liver Function 12/10/21 Range/Units 02:27 Total Bilirubin 0.6 (0.0-1.0) mg/dL AST 18 (5-37) U/L ALT 16 (0-40) U/L Alkaline Phosphatase 88 (39-117) U/L Albumin 4.6 (3.5-5.0) g/dL Assessment and Plan (1) Abdominal pain: Qualifiers: Abdominal location: generalized Qualified Code(s): R10.84 - Generalized abdominal pain Status: Acute (2) Status post appendectomy: Status: Acute (3) Acute appendicitis: Status: Acute Plan 31-year-old male patient status post laparoscopic appendectomy, signed out AMA returning to the emergency department with abdominal pain not surprisingly. Exam reveals normal postoperative findings. Patient is admitted for pain control. Quality Stroke Does the patient have a stroke diagnosis?: No VTE Prior VTE?: No VTE Risk Level:: Medical - moderate - high VTE Device Contraindication: N/A - Device Ordered VTE Drug Contraindication: N/A - Med Ordered Procedures Date of Service Date of Service: 12/10/21
[2021-12-10] MEDS: HYDROmorphone HCl 1 MG/ML SYRINGE 0.5 MG IVPUSH (08:21)
[2021-12-10] MEDS: Famotidine 20 MG TABLET PO (09:24)
--- NOTE | 2021-12-10 09:36 | PC.NURSE ---
report given to overflow radha العراقي
[2021-12-10] MEDS: oxyCODONE HCl Immed Release 5 MG TABLET PO ×2 (11:14→17:24)
[2021-12-10] MEDS: Fenofibrate 54 MG TABLET PO (11:15)
--- NOTE | 2021-12-10 13:19 | PC.NURSE ---
medicated x 1 with po oxycodone. patient co abdominal pain with reposition . educated on how to splint with movement and cough. educated on pain management after surgical procedure. Patient seems frustrated at times. requesting to turn IVF off. States that he will go home if we only give him pain medication .
--- NOTE | 2021-12-10 13:49 | MHC.CM.PN ---
CM MET WITH PT WITH THE ASSISTANCE OF A MECHANICAL SERVICE REPRESENTATIVE PT REPORTS HE LIVES WITH HIS FATHER WHO IS ALSO HIS RAILROAD CONSTRUCTION DIRECTOR HE REPORTS HE ALSO HAS A NURSE THAT COMES ONCE PER MONTH BUT HE DOES NOT KNOW THE AGENCY PT REPORTS HE DID JOT GET THE COVID-19 VACCINE BECAUSE HE IS UNABLE TO GET ANY VAX FOR MEDICAL REASONS PCP: JENNY MATOS PT REPORTS HIS FATHER WILL BE IN LATER AND WILL HAVE THE NAME OF PTS [facility] CURRENT DC PLAN IS HOME WITH RESUMPTION OF SERVICES FATHER TO TRANSPORT
[2021-12-10] MEDS: 0.9 % Sodium Chloride Flush 3 ML SYRINGE IVFLUSH (15:34)
--- NOTE | 2021-12-10 16:52 | PC.NURSE ---
Pt alert and oriented x4, calm and cooperative. Pt ambulated long distances with RN and head waiter. Pt tolerated ambulating well, steady on his feet. Pt states I can feel the air in my stomach when I'm walking . Pt educated extensively on the surgery younger had and the post-op instructions, educated on the importance of walking and how pain can be expected. Pt states at this time he has 8/10 abd pain, he was offered Tylenol, Oxycodone, or Dilaudid as ordered and refused all pain meds/ Pt states I want to wait for the doctor so he can assess me without pain meds in my system . Pt educated on how pain is expected and how taking prescribed pain medications is okay to help facilitate recovery. Pt continues to refuse meds. Pt voided without issues. No BM today. Per pt he can't have regular food due to previous mouth surgery and can only have soft/thick liquids. Otherwise patient tolerating diet well, denies N/V. MD Jsoeph aware of patient status. Lap sites assessed by this RN, minimal dried blood noted to umbilical lap site. Abd soft on light palpation. Vitals stable. IV in place flushing without issues.
--- NOTE | 2021-12-10 17:26 | PC.NURSE ---
Per MD Opal palacio for patient to be discharged now. Pt requesting discharge and agrees to plan. Pt now accepting pain meds, refused IV Dilaudid, asking for PO Oxycodone. Pt received oxycodone per orders, tolerated well. Ambulating well. Tolerating PO intake well. Urinating without issues.
--- NOTE | 2021-12-11 13:38 | PM.DS ---
DS: Providers Provider Date of Service: 12/10/21 Date of admission: 12/10/21 02:32 Primary care physician: Redd Gonzáles MD Attending physician on admission: Mook Joseph DS: Diagnosis Discharge Diagnosis (1) Abdominal pain: Status: Acute (2) Status post appendectomy: Status: Acute (3) Acute appendicitis: Status: Acute DS: Summary Hospital Course Hospital Course: BRIEF HPI: Dhruv Romero is a 31 year old male admitted on 12/09/2021 for acute appendicitis, status post laparoscopic appendectomy on 12/09/2021. The procedure was uncomplicated. The patient decided to leave the hospital against medical advice from the recovery room but subsequently returned to the emergency department because of increased abdominal pain. Exam revealed normal postoperative findings. HOSPITAL COURSE: The patient was admitted for pain control and started on PO/IV analgesics as needed. He again later that day decided to leave AMA. He left on 12/10/21 AMA. Status at Discharge Functional status at discharge: independent ambulation Time Spent with Patient Time attestation: Total time spent providing and/or coordinating discharge services: Discharge coordination time: Less than 30 minutes Quality: Stroke Does the patient have a stroke diagnosis?: No Physical Exam Vital Signs: Vital Signs: Last Vital Signs Temp 98.2 F 12/10/21 18:08 Pulse 77 12/10/21 18:08 Resp 18 12/10/21 18:08 BP 129/80 12/10/21 18:08 Pulse Ox 98 12/10/21 18:08 BMI result Body Mass Index 27.4 Discharge Plan Discharge Patient Disposition: Home, Self-Care Discharge Diagnosis: post op pain Referrals: Redd Gonzáles MD [Primary Care Provider] - 1 Week Mook Joseph MD [Physician] - 2 Weeks Discharge Medications: Continued calcium carbonate 200 mg calcium (500 mg) tablet,chewable 200 mg PO TID PRN (Reason: dyspepsia) Qty: 90 3RF phenytoin sodium extended 100 mg capsule 200 mg PO BID 90 Days Qty: 360 1RF sildenafil 100 mg tablet 100 mg PO DAILY PRN (Reason: Sexual Activity) 0RF Rx Instructions: administer 60 minutes before intended activity levetiracetam 1,000 mg tablet 1,000 mg PO BID 0RF aspirin 81 mg Tablet,Chewable 81 mg PO DAILY 0RF famotidine 20 mg tablet 20 mg PO BID 90 Days Qty: 180 3RF atorvastatin 40 mg tablet 40 mg PO BEDTIME 90 Days Qty: 90 1RF fenofibrate 54 mg tablet 54 mg PO DAILY 90 Days Qty: 90 1RF gabapentin 600 mg tablet 600 mg PO TID PRN (Reason: Mild Pain (Scale Score 1-4)) 0RF Discharge Orders: Discharge Order (Routine); Ordered 12/10/21 Ordered By: Mook Joseph Diet: advance to usual diet Activity on Discharge: No heavy lifting Stand Alone Forms: Patient Portal Discharge page Activity Restrictions/Additional Instructions: If the incision area is tender, you may apply an ice pack for short intervals (No more than 20 minutes on, followed by at least 20 minutes off). Do not apply heat. Do not use creams, lotions, or topical antibiotics unless instructed to do so by your surgeon. These can cause infection or allergic reaction. Ok to shower. Remove clear dressings 3 days following your procedure. You have steri strips (small white cloth strips) covering your incision- these will fall off ~1 week. No heavy lifting (>10lbs) or strenuous activity! Follow up in office with Dr. Joseph in 1 week. ([phone]) Call Your Doctor If: -Your temperature exceeds 101.5? F -You experience excessive pain or swelling -You have an unexpected reaction to medication -You have excessive bleeding -You experience continued vomiting/nausea -Your incision begins to separate -Your incision shows signs of infection such as increased redness, swelling, excessive pain, drainage (light blood or clear fluid is normal) or heat Care Plan Goals: Return to baseline health and gradual return to activity following recovery period. Adequate pain control Health Concerns: S/p lap appy Plan of Treatment: Pain control F/u in office Assessment: Improved Discharge Date/Time: 12/10/21 19:37
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
== END 2021-12-10 19:37 | disposition home or self-care (01) | DRG 861 ==
LOC: HO.ED 12-10 02:29 → HO.EDOVER 12-10 03:14
PROVIDERS: Admitting Provider Surgery; Emergency Provider Emergency Medicine Emergency Medical Services; PCP Internal Medicine; Visit Provider Surgery
DX: G89.18 Other acute postprocedural pain (principal); K21.9 Gastro-esophageal reflux disease without esophagitis; Z90.89 Acquired absence of other organs; Z79.82 Long term (current) use of aspirin; Z91.19 Patient's noncompliance with other medical treatment and regimen; Z79.899 Other long term (current) drug therapy
CPT/HCPCS: 36415; 80053; 83690; 85025; 93005; 99285; J1170; J2270; J2405

== ENCOUNTER 2021-12-13 13:04 | Outpatient (REF) | payer OTHER, SELFPAY ==
--- NOTE | 2021-12-13 13:09 | EEG_ITS ---
The waking background activity consists of a well-defined 10.5 to 11.5 hertz posterior alpha intermixed anteriorly with low-voltage fast frequencies. Two or 3 episodes of low-voltage blunted sharp and slow discharges seen in the right hemisphere in the 24-hour period. Drowsiness is characterized by diffuse theta slowing. During sleep symmetrical frontal central sleep spindles and vertex sharp transients developed over both hemispheres. A single phase reversal of sharp waves seen at F8. The patient remains asymptomatic. Arousals are unremarkable. IMPRESSION: This EEG is considered minimally abnormal due to occasional isolated sharp transients seen from the right temporal region. Clinical correlation is suggested. MD COLLINS Churchill/JOHNIE / [id number]
== END 2021-12-13 13:05 | disposition home or self-care (01) ==
LOC: HO.NEURO 13:04
PROVIDERS: Visit Provider Psychiatry & Neurology Neurology
DX: G40.909 Epilepsy, unspecified, not intractable, without status epilepticus (principal)
CPT/HCPCS: 95708

== ENCOUNTER → 2021-12-17 10:29 | Outpatient (BNVA) | payer OTHER, SELFPAY | PROVIDERS: PCP Internal Medicine; Visit Provider Surgery | DX: Z48.01 Encounter for change or removal of surgical wound dressing (principal) | CPT/HCPCS: 99211 ==

== ENCOUNTER → 2021-12-25 11:29 | Outpatient (BNVA) | payer OTHER, SELFPAY | PROVIDERS: PCP Internal Medicine; Referring Provider Internal Medicine; Visit Provider Surgery | DX: Z09 Encounter for follow-up examination after completed treatment for conditions other than malignant neoplasm (principal); R35.0 Frequency of micturition; Z90.49 Acquired absence of other specified parts of digestive tract | CPT/HCPCS: 99212 ==

== ENCOUNTER 2022-02-19 14:34 | Outpatient (REF) | payer OTHER, SELFPAY ==
--- NOTE | ~2022-02-19 | US_ITS ---
EXAMINATION: US PELVIS LIMITED (BLADDER) CLINICAL INFORMATION: Urinary frequency. COMPARISON: CT abdomen and pelvis 12/09/2021. TECHNIQUE: Real-time imaging of the bladder. FINDINGS: BLADDER: Well distended and normal. Bilateral ureteral jets are demonstrated. Prevoid bladder volume is 162.4 mL. Postvoid bladder volume is 4.2 mL. ADDITIONAL FINDINGS: The prostate gland is normal in size. The prostate gland measures 3.5 x 3.6 x 2.9 cm, volume 19 mL. US/US bladder IMPRESSION: Normal bladder ultrasound.
== END 2022-02-19 14:35 | disposition home or self-care (01) ==
LOC: HO.US 14:34
PROVIDERS: Visit Provider Surgery
DX: R35.0 Frequency of micturition (principal); Z87.898 Personal history of other specified conditions
CPT/HCPCS: 76857

== ENCOUNTER 2022-02-25 09:19 | Outpatient (REF) | payer OTHER, SELFPAY ==
[2022-02-25 09:50] LABS: MANUAL DIFF FLAG NO
[2022-02-25 10:11] LABS: Basophils Percent Auto 0.7 % (0-2); Eosinophils Absolute Auto 0.5 X10*3/uL (0.0-0.4); Eosinophils Percent Auto 8.6 % (0-4); Hematocrit 40.8 % (42.0-52.0); Hemoglobin 14.3 g/dl (14.0-18.0); Imm Gran Abs Auto 0.02 X10*3/uL (0.00-0.03); Imm Gran Pct Auto 0.4 % (0.0-0.4); Lymphocytes Percent Auto 35.7 % (20-40); Mean Corpuscular Volume 88.5 fL (80.0-98.0); Mean Platelet Volume 9.8 fL (9.4-12.4); Monocytes Absolute Auto 0.4 X10*3/uL (0.1-1.2); Neutrophils Absolute Auto 2.7 x10*3/uL (2.0-8.3); Neutrophils Percent Auto 47.6 % (45-73); Platelet Count 210 X10*3/uL (160-400); Red Blood Count 4.61 X10*6/uL (4.60-5.80); Red Cell Distribution Width 13.2 % (11.0-16.0); White Blood Count 5.7 X10*3/uL (4.8-10.8)
[2022-02-25 10:46] LABS: Alanine Aminotransferase 19 U/L (0-40); Albumin Level 4.5 g/dL (3.5-5.0); Alkaline Phosphatase 77 U/L (39-117); Anion Gap 12 (12-20); Aspartate Amino Transferase 18 U/L (5-37); Bilirubin Total 0.3 mg/dL (0.0-1.0); Blood Urea Nitrogen 10 mg/dL (9-16); Calcium 9.3 mg/dL (8.4-10.2); Carbon Dioxide 25 mmol/L (22-29); Chloride 108 mmol/L (96-108); Cholesterol 239 mg/dL; Estimated Glomerular Filt Rate > 60; Glucose Fasting 101 mg/dL (60-99); HDL Cholesterol 34 mg/dL; LDL Cholesterol Calculated 152 mg/dl; Potassium 3.5 mmol/L (3.3-5.1); Sodium 141 mmol/L (135-145); Total Protein 7.1 g/dL (6.5-8.0); Triglycerides 265 mg/dL
[2022-02-25 11:07] LABS: Appearance Urine CLEAR; Color Urine YELLOW; Glucose Urine UA NEG (NEG); Leukocyte Esterase Urine NEG (NEG); Nitrite Urine NEG (NEG); Urine Blood NEG (NEG); Urine Ketones NEG (NEG); Urine Protein NEG (NEG-TRACE)
[2022-02-25 11:08] LABS: TSH reflex Free T4 1.79 uIU/mL (0.32-4.0); Vitamin D 25-OH Total 9.8 ng/mL (>30)
[2022-02-25 11:24] LABS: Phenytoin Dilantin 8.6 ug/mL (10.0-20.0)
[2022-02-28 05:11] LABS: Levetiracetam Keppra 24.3 mcg/mL (6.0-46.0)
== END 2022-02-25 09:20 | disposition home or self-care (01) ==
LOC: HO.LAB 09:19
PROVIDERS: PCP Internal Medicine; Visit Provider Internal Medicine
DX: E78.00 Pure hypercholesterolemia, unspecified (principal); G40.909 Epilepsy, unspecified, not intractable, without status epilepticus; I10 Essential (primary) hypertension; E55.9 Vitamin D deficiency, unspecified
CPT/HCPCS: 36415; 80053; 80061; 80177; 80185; 81003; 82306; 84443; 85025

== ENCOUNTER 2022-04-15 15:09 | Outpatient (REF) | payer OTHER, SELFPAY ==
[2022-04-15 15:47] LABS: COVID-19 Test Negative (Negative); IDNOW Serial# 55D5AD1C
== END 2022-04-15 15:10 | disposition home or self-care (01) ==
LOC: HO.LAB 15:09
PROVIDERS: Visit Provider Internal Medicine
DX: Z20.822 Contact with and (suspected) exposure to COVID-19 (principal)
CPT/HCPCS: 87635; C9803

== ENCOUNTER 2022-04-22 15:42 | Outpatient (REF) | payer OTHER, SELFPAY ==
[2022-04-22 16:55] LABS: COVID-19 Test Negative (Negative); IDNOW Serial# 55D5AD1C
== END 2022-04-22 15:43 | disposition home or self-care (01) ==
LOC: HO.LAB 15:42
PROVIDERS: Visit Provider Internal Medicine
DX: Z20.822 Contact with and (suspected) exposure to COVID-19 (principal)
CPT/HCPCS: 87635; C9803

== ENCOUNTER 2022-05-23 10:09 | Outpatient (REF) | payer OTHER, SELFPAY ==
[2022-05-23 12:18] LABS: COVID-19 Test Negative (Negative); IDNOW Serial# 55D5AD1C
== END 2022-05-23 10:10 | disposition home or self-care (01) ==
LOC: HO.LAB 10:09
PROVIDERS: Visit Provider Internal Medicine
DX: Z20.822 Contact with and (suspected) exposure to COVID-19 (principal)
CPT/HCPCS: 87635; C9803

== ENCOUNTER 2022-07-30 13:16 | Outpatient (REF) | payer OTHER, SELFPAY ==
[2022-08-04 19:28] LABS: Testosterone, Free 70.8 pg/mL (35.0-155.0); Testosterone, Total 931 ng/dL (250-1100)
== END 2022-07-30 13:17 | disposition home or self-care (01) ==
LOC: HO.LAB 13:16
PROVIDERS: PCP Internal Medicine; Visit Provider Urology
DX: N52.9 Male erectile dysfunction, unspecified (principal)
CPT/HCPCS: 36415; 84402; 84403

== ENCOUNTER 2022-09-25 12:33 | Outpatient (REF) | payer OTHER, SELFPAY ==
[2022-09-25 12:57] LABS: MANUAL DIFF FLAG NO
[2022-09-25 14:25] LABS: Basophils Absolute Auto 0.1 X10*3/uL (0.0-0.2); Basophils Percent Auto 0.7 % (0-2); Eosinophils Absolute Auto 0.6 X10*3/uL (0.0-0.4); Eosinophils Percent Auto 9.1 % (0-4); Hematocrit 40.4 % (42.0-52.0); Hemoglobin 14.1 g/dl (14.0-18.0); Imm Gran Abs Auto 0.02 X10*3/uL (0.00-0.03); Imm Gran Pct Auto 0.3 % (0.0-0.4); Lymphocytes Absolute Auto 2.7 X10*3/uL (1.2-4.9); Lymphocytes Percent Auto 37.6 % (20-40); Mean Corpuscular HGB Conc 34.9 g/dl (31.0-36.0); Mean Corpuscular Hemoglobin 30.7 pg (27.0-33.0); Mean Corpuscular Volume 87.8 fL (80.0-98.0); Mean Platelet Volume 9.8 fL (9.4-12.4); Monocytes Absolute Auto 0.5 X10*3/uL (0.1-1.2); Monocytes Percent Auto 7.7 % (2-11); Neutrophils Absolute Auto 3.2 x10*3/uL (2.0-8.3); Neutrophils Percent Auto 44.6 % (45-73); Platelet Count 210 X10*3/uL (160-400); Red Cell Distribution Width 12.4 % (11.0-16.0); White Blood Count 7.1 X10*3/uL (4.8-10.8)
[2022-09-25 15:01] LABS: TSH reflex Free T4 1.36 uIU/mL (0.32-4.0); Vitamin D 25-OH Total 13.5 ng/mL (>30)
[2022-09-25 15:04] LABS: Alanine Aminotransferase 24 U/L (0-40); Albumin Level 4.1 g/dL (3.5-5.0); Alkaline Phosphatase 86 U/L (39-117); Anion Gap 11 (12-20); Aspartate Amino Transferase 16 U/L (5-37); Bilirubin Total < 0.2 mg/dL (0.0-1.0); Blood Urea Nitrogen 8 mg/dL (9-16); Calcium 9.3 mg/dL (8.4-10.2); Carbon Dioxide 23 mmol/L (22-29); Chloride 109 mmol/L (96-108); Cholesterol 181 mg/dL; Estimated Glomerular Filt Rate > 60; Glucose Fasting 89 mg/dL (60-99); HDL Cholesterol 28 mg/dL; LDL Cholesterol Calculated 86 mg/dl; Phenytoin Dilantin 5.6 ug/mL (10.0-20.0); Potassium 3.7 mmol/L (3.3-5.1); Sodium 139 mmol/L (135-145); Total Protein 6.4 g/dL (6.5-8.0); Triglycerides 339 mg/dL
[2022-09-25 15:27] LABS: Appearance Urine Clear; Color Urine Yellow; Glucose Urine UA Negative (Negative); Leukocyte Esterase Urine Negative (Negative); Nitrite Urine Negative (Negative); PH 6.5 (5.0-9.0); Urine Blood Negative (Negative); Urine Ketones Negative (Negative); Urine Protein Negative (Neg-Trace)
[2022-09-29 20:43] LABS: Levetiracetam Keppra 22.7 mcg/mL (6.0-46.0)
== END 2022-09-25 12:34 | disposition home or self-care (01) ==
LOC: HO.LAB 12:33
PROVIDERS: PCP Internal Medicine; Visit Provider Internal Medicine
DX: Z13.89 Encounter for screening for other disorder (principal)
CPT/HCPCS: 36415; 80053; 80061; 80177; 80185; 81003; 82306; 84443; 85025

== ENCOUNTER 2022-10-03 12:53 | Outpatient (REF) | payer OTHER, SELFPAY ==
--- NOTE | ~2022-10-03 | XR_ITS ---
EXAMINATION: XR MANDIBLE CLINICAL INFORMATION: Left mandibular fracture, status post reduction. Pain greater on left. COMPARISON: Radiographs mandible 06/18/2021 TECHNIQUE: 5 views of the mandible were obtained. FINDINGS: There are stable post surgical changes with anterior left mandibular compression plate and multiple screws. Hardware is intact. There is no destructive process or osteolysis. No acute fracture. XR/XR mandible min 4V IMPRESSION: 1. Stable postsurgical changes. Hardware intact. 2. No destructive process or osteolysis.
== END 2022-10-03 12:54 | disposition home or self-care (01) ==
LOC: HO.XRAY 12:53
PROVIDERS: PCP Internal Medicine; Visit Provider Internal Medicine
DX: M84.48XD Pathological fracture, other site, subsequent encounter for fracture with routine healing (principal)
CPT/HCPCS: 70110

== ENCOUNTER → 2022-10-11 08:34 | Outpatient (BNVA) | payer OTHER, SELFPAY | PROVIDERS: PCP Internal Medicine; Visit Provider Psychiatry & Neurology Neurology | DX: G40.909 Epilepsy, unspecified, not intractable, without status epilepticus (principal) | CPT/HCPCS: 99202 ==

== ENCOUNTER 2022-10-25 09:30 | Outpatient (REF) | payer OTHER, SELFPAY ==
[2022-10-25 09:45] LABS: MANUAL DIFF FLAG NO
[2022-10-25 10:43] LABS: Basophils Absolute Auto 0.1 X10*3/uL (0.0-0.2); Basophils Percent Auto 0.6 % (0-2); Eosinophils Absolute Auto 0.6 X10*3/uL (0.0-0.4); Eosinophils Percent Auto 4.5 % (0-4); Hematocrit 40.5 % (42.0-52.0); Hemoglobin 14.2 g/dl (14.0-18.0); Imm Gran Abs Auto 0.06 X10*3/uL (0.00-0.03); Imm Gran Pct Auto 0.4 % (0.0-0.4); Lymphocytes Absolute Auto 2.8 X10*3/uL (1.2-4.9); Lymphocytes Percent Auto 20.5 % (20-40); Mean Corpuscular HGB Conc 35.1 g/dl (31.0-36.0); Mean Corpuscular Hemoglobin 30.7 pg (27.0-33.0); Mean Corpuscular Volume 87.7 fL (80.0-98.0); Monocytes Absolute Auto 0.6 X10*3/uL (0.1-1.2); Monocytes Percent Auto 4.7 % (2-11); Neutrophils Absolute Auto 9.3 x10*3/uL (2.0-8.3); Neutrophils Percent Auto 69.3 % (45-73); Platelet Count 202 X10*3/uL (160-400); Red Blood Count 4.62 X10*6/uL (4.60-5.80); Red Cell Distribution Width 12.4 % (11.0-16.0); White Blood Count 13.5 X10*3/uL (4.8-10.8)
[2022-10-25 11:25] LABS: Alanine Aminotransferase 18 U/L (0-40); Albumin Level 4.5 g/dL (3.5-5.0); Alkaline Phosphatase 84 U/L (39-117); Anion Gap 15 (12-20); Aspartate Amino Transferase 21 U/L (5-37); Bilirubin Total 0.3 mg/dL (0.0-1.0); Blood Urea Nitrogen 14 mg/dL (9-16); Calcium 9.5 mg/dL (8.4-10.2); Carbon Dioxide 22 mmol/L (22-29); Chloride 108 mmol/L (96-108); Cholesterol 232 mg/dL; Estimated Glomerular Filt Rate > 60; Glucose Fasting 87 mg/dL (60-99); HDL Cholesterol 35 mg/dL; LDL Cholesterol Calculated 161 mg/dl; Potassium 3.8 mmol/L (3.3-5.1); Sodium 141 mmol/L (135-145); Total Protein 6.8 g/dL (6.5-8.0); Triglycerides 182 mg/dL
[2022-10-25 11:29] LABS: Vitamin D 25-OH Total 28.7 ng/mL (>30)
== END 2022-10-25 09:31 | disposition home or self-care (01) ==
LOC: HO.LAB 09:30
PROVIDERS: PCP Internal Medicine; Visit Provider Internal Medicine
DX: E78.00 Pure hypercholesterolemia, unspecified (principal); E55.9 Vitamin D deficiency, unspecified; I10 Essential (primary) hypertension
CPT/HCPCS: 36415; 80053; 80061; 82306; 85025

== ENCOUNTER → 2022-12-25 15:11 | Outpatient (BNVA) | payer OTHER, SELFPAY | PROVIDERS: PCP Internal Medicine; Visit Provider Urology | DX: R32 Unspecified urinary incontinence (principal); N52.9 Male erectile dysfunction, unspecified; R35.1 Nocturia | CPT/HCPCS: 99212 ==

== ENCOUNTER 2023-01-29 10:29 | Outpatient (REF) | payer OTHER, SELFPAY ==
[2023-01-29 12:36] LABS: Phenytoin Dilantin 23.9 ug/mL (10.0-20.0)
[2023-02-04 14:18] LABS: Levetiracetam Keppra 29.6 mcg/mL (6.0-46.0)
== END 2023-01-29 10:30 | disposition home or self-care (01) ==
LOC: HO.LAB 10:29
PROVIDERS: Psychiatry & Neurology Neurology; PCP Internal Medicine; Visit Provider Internal Medicine
DX: G40.909 Epilepsy, unspecified, not intractable, without status epilepticus (principal)
CPT/HCPCS: 36415; 80177; 80185

== ENCOUNTER 2023-02-25 13:10 | Outpatient (REF) | payer OTHER, SELFPAY | END 2023-02-25 13:11 | disposition home or self-care (01) | LOC: HO.NEURO 13:10 | PROVIDERS: PCP Internal Medicine; Visit Provider Psychiatry & Neurology Neurology | DX: Z13.89 Encounter for screening for other disorder (principal) ==

== ENCOUNTER 2023-03-26 15:07 | Outpatient (AMB) | payer OTHER, SELFPAY ==
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
== END 2023-03-26 15:46 | disposition home or self-care (01) ==
PROVIDERS: Visit Provider Urology
DX: N52.9 Male erectile dysfunction, unspecified (principal); R35.1 Nocturia
CPT/HCPCS: 99213

== ENCOUNTER → 2023-03-26 15:07 | Outpatient (BNVA) | payer OTHER, SELFPAY | PROVIDERS: Visit Provider Urology | DX: N52.9 Male erectile dysfunction, unspecified (principal); R35.1 Nocturia; Z79.82 Long term (current) use of aspirin; Z79.899 Other long term (current) drug therapy | CPT/HCPCS: 99212 ==

== ENCOUNTER 2023-06-04 10:37 | Outpatient (REF) | payer OTHER, SELFPAY ==
[2023-06-04 10:57] LABS: MANUAL DIFF FLAG NO
[2023-06-04 11:19] LABS: Appearance Urine Clear; Color Urine Yellow; Glucose Urine UA Negative (Negative); Leukocyte Esterase Urine Negative (Negative); Nitrite Urine Negative (Negative); PH 6.5 (5.0-9.0); Urine Blood Negative (Negative); Urine Ketones Negative (Negative); Urine Protein Negative (Neg-Trace)
[2023-06-04 11:21] LABS: Basophils Percent Auto 0.4 % (0-2); Eosinophils Absolute Auto 0.7 X10*3/uL (0.0-0.4); Eosinophils Percent Auto 9.8 % (0-4); Hematocrit 41.3 % (42.0-52.0); Hemoglobin 14.7 g/dl (14.0-18.0); Imm Gran Abs Auto 0.02 X10*3/uL (0.00-0.03); Imm Gran Pct Auto 0.3 % (0.0-0.4); Lymphocytes Absolute Auto 2.9 X10*3/uL (1.2-4.9); Lymphocytes Percent Auto 42.1 % (20-40); Mean Corpuscular HGB Conc 35.6 g/dl (31.0-36.0); Mean Corpuscular Hemoglobin 30.9 pg (27.0-33.0); Mean Corpuscular Volume 86.9 fL (80.0-98.0); Mean Platelet Volume 9.8 fL (9.4-12.4); Monocytes Absolute Auto 0.5 X10*3/uL (0.1-1.2); Monocytes Percent Auto 7.2 % (2-11); Neutrophils Absolute Auto 2.8 x10*3/uL (2.0-8.3); Neutrophils Percent Auto 40.2 % (45-73); Platelet Count 188 X10*3/uL (160-400); Red Blood Count 4.75 X10*6/uL (4.60-5.80); Red Cell Distribution Width 12.2 % (11.0-16.0); White Blood Count 6.9 X10*3/uL (4.8-10.8)
[2023-06-04 13:08] LABS: Alanine Aminotransferase 15 U/L (0-40); Albumin Level 4.3 g/dL (3.5-5.0); Alkaline Phosphatase 73 U/L (39-117); Anion Gap 13 (12-20); Aspartate Amino Transferase 20 U/L (5-37); Bilirubin Total 0.2 mg/dL (0.0-1.0); Blood Urea Nitrogen 15 mg/dL (9-16); Calcium 9.5 mg/dL (8.4-10.2); Carbon Dioxide 24 mmol/L (22-29); Chloride 107 mmol/L (96-108); Cholesterol 201 mg/dL (<200); Estimated Glomerular Filt Rate > 60; Glucose Fasting 87 mg/dL (60-99); HDL Cholesterol 38 mg/dL (>40); LDL Cholesterol Calculated 134 mg/dL (<100); Potassium 3.9 mmol/L (3.3-5.1); Sodium 140 mmol/L (135-145); Total Protein 6.9 g/dL (6.5-8.0); Triglycerides 145 mg/dL (<150)
[2023-06-04 13:29] LABS: TSH reflex Free T4 2.62 uIU/mL (0.32-4.0); Vitamin D 25-OH Total 18.6 ng/mL (>30)
== END 2023-06-04 10:38 | disposition home or self-care (01) ==
LOC: HO.LAB 10:37
PROVIDERS: PCP Internal Medicine; Visit Provider Internal Medicine
DX: R30.0 Dysuria (principal); E78.00 Pure hypercholesterolemia, unspecified; E55.9 Vitamin D deficiency, unspecified; I10 Essential (primary) hypertension
CPT/HCPCS: 36415; 80053; 80061; 81003; 82306; 84443; 85025

== ENCOUNTER 2023-06-09 14:12 | Outpatient (AMB) | payer OTHER, SELFPAY ==
[2023-06-09 14:13] VITALS: BP 122/80; PULSE 71; O2SAT 98; BMI 24.4
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
== END 2023-06-09 14:45 | disposition home or self-care (01) ==
PROVIDERS: PCP Internal Medicine; Visit Provider Internal Medicine
DX: R56.9 Unspecified convulsions (principal); R68.84 Jaw pain; K21.9 Gastro-esophageal reflux disease without esophagitis; Z98.890 Other specified postprocedural states; E78.2 Mixed hyperlipidemia; G89.29 Other chronic pain; G57.71 Causalgia of right lower limb
CPT/HCPCS: 99214

== ENCOUNTER 2023-06-24 10:06 | Outpatient (REF) | payer OTHER, SELFPAY | END 2023-06-24 10:07 | disposition home or self-care (01) | LOC: HO.US 10:06 | PROVIDERS: PCP Internal Medicine; Visit Provider Internal Medicine | DX: R22.1 Localized swelling, mass and lump, neck (principal) | CPT/HCPCS: 76536 ==

== ENCOUNTER 2023-06-27 10:06 | Outpatient (REF) | payer OTHER, SELFPAY ==
[2023-06-27 12:23] LABS: Phenytoin Dilantin 17.9 ug/mL (10.0-20.0)
[2023-06-30 18:09] LABS: Levetiracetam Keppra 30.9 mcg/mL (6.0-46.0)
== END 2023-06-27 10:07 | disposition home or self-care (01) ==
LOC: HO.LAB 10:06
PROVIDERS: PCP Internal Medicine; Visit Provider Psychiatry & Neurology Neurology
DX: G40.909 Epilepsy, unspecified, not intractable, without status epilepticus (principal)
CPT/HCPCS: 36415; 80177; 80185

== ENCOUNTER 2023-09-26 13:17 | Outpatient (AMB) | payer OTHER, SELFPAY ==
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
== END 2023-09-26 13:52 | disposition home or self-care (01) ==
PROVIDERS: PCP Internal Medicine; Visit Provider Urology
DX: N52.9 Male erectile dysfunction, unspecified (principal); R35.1 Nocturia
CPT/HCPCS: 99213

== ENCOUNTER → 2023-09-26 13:17 | Outpatient (BNVA) | payer OTHER, SELFPAY | PROVIDERS: PCP Internal Medicine; Visit Provider Urology | DX: N52.9 Male erectile dysfunction, unspecified (principal); R35.1 Nocturia | CPT/HCPCS: 51798; 99212 ==

== ENCOUNTER 2023-10-07 09:21 | Outpatient (REF) | payer OTHER, SELFPAY ==
[2023-10-07 09:42] LABS: MANUAL DIFF FLAG NO
[2023-10-07 11:17] LABS: Basophils Absolute Auto 0.1 X10*3/uL (0.0-0.2); Basophils Percent Auto 0.8 % (0-2); Eosinophils Absolute Auto 0.8 X10*3/uL (0.0-0.4); Eosinophils Percent Auto 8.7 % (0-4); Hemoglobin 15.3 g/dl (14.0-18.0); Imm Gran Abs Auto 0.03 X10*3/uL (0.00-0.03); Imm Gran Pct Auto 0.3 % (0.0-0.4); Lymphocytes Absolute Auto 2.9 X10*3/uL (1.2-4.9); Lymphocytes Percent Auto 30.8 % (20-40); Mean Corpuscular HGB Conc 34.8 g/dl (31.0-36.0); Mean Corpuscular Hemoglobin 31.4 pg (27.0-33.0); Mean Corpuscular Volume 90.3 fL (80.0-98.0); Mean Platelet Volume 10.3 fL (9.4-12.4); Monocytes Absolute Auto 0.6 X10*3/uL (0.1-1.2); Monocytes Percent Auto 6.5 % (2-11); Neutrophils Absolute Auto 4.9 x10*3/uL (2.0-8.3); Neutrophils Percent Auto 52.9 % (45-73); Platelet Count 214 X10*3/uL (160-400); Red Blood Count 4.87 X10*6/uL (4.60-5.80); Red Cell Distribution Width 12.7 % (11.0-16.0); White Blood Count 9.2 X10*3/uL (4.8-10.8)
[2023-10-07 11:22] LABS: Appearance Urine Clear; Color Urine Yellow; Glucose Urine UA Negative (Negative); Leukocyte Esterase Urine Negative (Negative); Nitrite Urine Negative (Negative); Specific Gravity - Urine 1.015 (1.005-1.025); Urine Blood Negative (Negative); Urine Ketones Negative (Negative); Urine Protein Negative (Neg-Trace)
[2023-10-07 12:01] LABS: Phenytoin Dilantin 17.6 ug/mL (10.0-20.0)
[2023-10-07 12:12] LABS: Alanine Aminotransferase 22 U/L (0-40); Albumin Level 4.6 g/dL (3.5-5.0); Alkaline Phosphatase 73 U/L (39-117); Anion Gap 10 (12-20); Aspartate Amino Transferase 20 U/L (5-37); Bilirubin Total 0.2 mg/dL (0.0-1.0); Blood Urea Nitrogen 16 mg/dL (9-16); Calcium 9.8 mg/dL (8.4-10.2); Carbon Dioxide 28 mmol/L (22-29); Chloride 106 mmol/L (96-108); Cholesterol 221 mg/dL (<200); Estimated Glomerular Filt Rate > 60; Glucose Fasting 88 mg/dL (60-99); HDL Cholesterol 40 mg/dL (>40); LDL Cholesterol Calculated 142 mg/dL (<100); Potassium 4.3 mmol/L (3.3-5.1); Sodium 140 mmol/L (135-145); Total Protein 7.3 g/dL (6.5-8.0); Triglycerides 197 mg/dL (<150)
[2023-10-07 12:27] LABS: TSH reflex Free T4 2.06 uIU/mL (0.32-4.0); Vitamin D 25-OH Total 15.6 ng/mL (>30)
[2023-10-10 18:04] LABS: Levetiracetam Keppra 33.8 mcg/mL (6.0-46.0)
== END 2023-10-07 09:22 | disposition home or self-care (01) ==
LOC: HO.LAB 09:21
PROVIDERS: PCP Internal Medicine; Visit Provider Internal Medicine
DX: I10 Essential (primary) hypertension (principal)
CPT/HCPCS: 36415; 80053; 80061; 80177; 80185; 81003; 82306; 84443; 85025

== ENCOUNTER 2023-10-10 14:21 | Outpatient (AMB) | payer OTHER, SELFPAY ==
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
[2023-10-10 14:17] VITALS: BP 116/80; PULSE 71; O2SAT 97; BMI 24.7
== END 2023-10-10 15:11 | disposition home or self-care (01) ==
PROVIDERS: PCP Internal Medicine; Visit Provider Internal Medicine
DX: E78.2 Mixed hyperlipidemia (principal); R56.9 Unspecified convulsions; R68.84 Jaw pain; G89.29 Other chronic pain; G57.71 Causalgia of right lower limb; K21.9 Gastro-esophageal reflux disease without esophagitis; Z98.890 Other specified postprocedural states
CPT/HCPCS: 99214

== ENCOUNTER 2023-11-28 14:46 | Outpatient (AMB) | payer OTHER, SELFPAY ==
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
[2023-11-28 15:01] VITALS: BP 130/70; PULSE 78; O2SAT 97; BMI 24.1
== END 2023-11-28 16:03 | disposition home or self-care (01) ==
PROVIDERS: PCP Internal Medicine; Visit Provider Internal Medicine
DX: Z00.00 Encounter for general adult medical examination without abnormal findings (principal); E78.2 Mixed hyperlipidemia; R56.9 Unspecified convulsions; R68.84 Jaw pain; G89.29 Other chronic pain; G57.71 Causalgia of right lower limb; K21.9 Gastro-esophageal reflux disease without esophagitis; E55.9 Vitamin D deficiency, unspecified
CPT/HCPCS: 99395

== ENCOUNTER 2024-02-03 08:53 | Outpatient (REF) | payer OTHER, SELFPAY ==
[2024-02-03 09:57] LABS: Appearance Urine Clear; Color Urine Yellow; Glucose Urine UA Negative (Negative); Leukocyte Esterase Urine Negative (Negative); Nitrite Urine Negative (Negative); PH 6.5 (5.0-9.0); Urine Blood Negative (Negative); Urine Ketones Negative (Negative); Urine Protein Negative (Neg-Trace)
[2024-02-03 10:25] LABS: TSH reflex Free T4 3.05 uIU/mL (0.32-4.0)
== END 2024-02-03 08:54 | disposition home or self-care (01) ==
LOC: HO.LAB 08:53
PROVIDERS: PCP Internal Medicine; Visit Provider Internal Medicine
DX: E78.00 Pure hypercholesterolemia, unspecified (principal); R30.0 Dysuria
CPT/HCPCS: 36415; 81003; 84443

== ENCOUNTER 2024-03-23 10:35 | Outpatient (REF) | payer OTHER, SELFPAY ==
[2024-03-23 10:53] LABS: MANUAL DIFF FLAG NO
[2024-03-23 11:13] LABS: Basophils Absolute Auto 0.1 X10*3/uL (0.0-0.2); Basophils Percent Auto 0.7 % (0-2); Eosinophils Absolute Auto 0.6 X10*3/uL (0.0-0.4); Eosinophils Percent Auto 8.6 % (0-4); Hematocrit 42.5 % (42.0-52.0); Imm Gran Abs Auto 0.02 X10*3/uL (0.00-0.03); Imm Gran Pct Auto 0.3 % (0.0-0.4); Lymphocytes Absolute Auto 2.6 X10*3/uL (1.2-4.9); Lymphocytes Percent Auto 36.2 % (20-40); Mean Corpuscular HGB Conc 35.3 g/dl (31.0-36.0); Mean Corpuscular Hemoglobin 31.3 pg (27.0-33.0); Mean Corpuscular Volume 88.7 fL (80.0-98.0); Mean Platelet Volume 9.8 fL (9.4-12.4); Monocytes Absolute Auto 0.5 X10*3/uL (0.1-1.2); Monocytes Percent Auto 6.8 % (2-11); Neutrophils Absolute Auto 3.4 x10*3/uL (2.0-8.3); Neutrophils Percent Auto 47.4 % (45-73); Platelet Count 191 X10*3/uL (160-400); Red Blood Count 4.79 X10*6/uL (4.60-5.80); Red Cell Distribution Width 12.9 % (11.0-16.0); White Blood Count 7.1 X10*3/uL (4.8-10.8)
[2024-03-23 11:44] LABS: Phenytoin Dilantin 15.4 ug/mL (10.0-20.0)
[2024-03-23 12:13] LABS: Alanine Aminotransferase 17 U/L (0-40); Albumin Level 4.5 g/dL (3.5-5.0); Alkaline Phosphatase 82 U/L (39-117); Anion Gap 9 (12-20); Aspartate Amino Transferase 23 U/L (5-37); Bilirubin Total 0.2 mg/dL (0.0-1.0); Blood Urea Nitrogen 16 mg/dL (9-16); Calcium 9.5 mg/dL (8.4-10.2); Carbon Dioxide 27 mmol/L (22-29); Chloride 106 mmol/L (96-108); Cholesterol 241 mg/dL (<200); Estimated Glomerular Filt Rate > 60; Glucose Fasting 89 mg/dL (60-99); HDL Cholesterol 38 mg/dL (>40); LDL Cholesterol Calculated 143 mg/dL (<100); Sodium 138 mmol/L (135-145); Total Protein 7.2 g/dL (6.5-8.0); Triglycerides 300 mg/dL (<150); Vitamin D 25-OH Total 39.3 ng/mL (>30)
[2024-03-25 21:12] LABS: Levetiracetam Keppra 28.9 mcg/mL (6.0-46.0)
== END 2024-03-23 10:36 | disposition home or self-care (01) ==
LOC: HO.LAB 10:35
PROVIDERS: PCP Internal Medicine; Visit Provider Internal Medicine
DX: G40.909 Epilepsy, unspecified, not intractable, without status epilepticus (principal); D64.9 Anemia, unspecified; E78.00 Pure hypercholesterolemia, unspecified; E55.9 Vitamin D deficiency, unspecified
CPT/HCPCS: 36415; 80053; 80061; 80177; 80185; 82306; 85025

== ENCOUNTER 2024-03-29 15:45 | Outpatient (AMB) | payer OTHER, SELFPAY ==
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
[2024-03-29 16:03] VITALS: BP 120/60; PULSE 79; O2SAT 97; BMI 24.4
== END 2024-03-29 16:52 | disposition home or self-care (01) ==
PROVIDERS: PCP Internal Medicine; Visit Provider Internal Medicine
DX: E78.2 Mixed hyperlipidemia (principal); R56.9 Unspecified convulsions; R68.84 Jaw pain; G89.29 Other chronic pain; G57.71 Causalgia of right lower limb; K21.9 Gastro-esophageal reflux disease without esophagitis; E55.9 Vitamin D deficiency, unspecified; F17.200 Nicotine dependence, unspecified, uncomplicated
CPT/HCPCS: 99214; G2211

== ENCOUNTER 2024-04-29 17:02 | Outpatient (REF) | payer OTHER, SELFPAY ==
--- NOTE | ~2024-04-29 | CT_ITS ---
EXAMINATION: CT FACIAL BONES WITHOUT CONTRAST CLINICAL INFORMATION: Left mandible area fixated comminuted fracture. Right TMJ clicking and pain. Patient cannot undergo MRI due to metal wires used in surgery . COMPARISON: CT facial bones 04/08/2019. TECHNIQUE: Spiral CT imaging of the maxillofacial region and mandible was performed utilizing contiguous axial slice sections without IV contrast. Sagittal, coronal, and thin section axial reformatted images were constructed from the axial data set. This CT examination was performed using dose optimization techniques as appropriate, variously including the following: *Automated exposure control *Adjustment of mA and/or kV according to patient size (this includes techniques or standardized protocols for targeted exams where dose is matched to indication/reason for exam; i.e. extremities or head) *Use of iterative reconstruction technique DLP: 170 mGy-cm FINDINGS: -Unfortunately, the patient moved significantly during the examination, and the level TM joints particularly on the left are somewhat obscured by motion artifact. This affects the left more than the right TMJ. -Mandibular fixation plate and screws is present, extending from the right parasymphyseal mandible through the left parasymphyseal, left ramus, and terminates in the left coronoid process. -There appears to be a subacute partially healing fracture of the left parasymphyseal mandible, left ramus extending into the left proximal coronoid process. This fracture does traverse the left alveolar canal. -No additional mandibular fracture identified although evaluation of the left mandible is significantly limited by motion. No gross hardware abnormality. Within the confines of motion artifact, hardware appears well seated without loosening. -There are appears to be a subacute fracture of the left paramedian clivus, extending ventrally to the base of the posterior right sphenoid sinus, and dorsally to the dorsum sella. No displacement. -A linear lucency consistent with a nondisplaced fracture line is noted traversing the right greater sphenoid wing, extending into the medial aspect of the right glenoid fossa (series 4, image 154), which also involves the lateral aspect of foramen spinosum. (Series 8, image 24). This also involves the anterior wall of the bony right EAC. No displacement. -There is a high riding right jugular bulb, without definite dehiscence. Nondisplaced fracture line does appear to involve the ventral wall. -Suspect nondisplaced fractures of the right pterygoid plate, and right lateral orbit. These are not definitive but extremely subtle. -No additional fractures are detected. -The right TM joint has a normal appearance of the glenoid, temporal eminence, and joint space in the closed mouth position. There is normal alignment of the TM joints, with the condyle situated as expected in the 11:00 aspect of the glenoid fossa. Minimal arthritic spurring of the condyle is present without significant arthritic changes. Evaluation for disc abnormalities are not possible on a noncontrast CT scan with motion degradation. This exam was not performed with open mouth acquisitions, further limiting evaluation. -The left TM joint has a similar appearance to the right although is significantly motion obscured. -Minimal mucosal thickening present in the sphenoid sinuses. Patchy opacification of bilateral ethmoid sinuses. Paranasal sinuses are otherwise normally pneumatized. Normal pneumatization of the mastoid air cells and middle ear cavities. -Soft tissues of the globes, orbits, vault clerk spaces, parotid spaces, retropharyngeal space, and face appear normal. No hematoma is present. -Limited visualization of the intracranial contents demonstrates no definite hemorrhage or space-occupying abnormality. CT/CT facial bones wo IV con IMPRESSION: 1. Limited examination due to motion, mainly limiting evaluation of the left TM joint. Also, open mouth acquisition was acquired. Cannot evaluate the discal structures and retrodiscal structures on CT with no contrast. 2. Very subtle nondisplaced fractures identified through the left paramedian clivus extending to the dorsum sellae and ventrally to the right posterior sphenoid sinus, as well as nondisplaced fracture traversing the floor of the right middle cranial fossa, extending through the medial aspect glenoid fossa of the right TM joint, anterior and inferior valadez of the bony right EAC, to involve the anterior jugular bulb, into the superior right hypoglossal canal, and ultimately into the right occipital condyle. Suspect this may be the cause of patient's right TM joint symptomatology. 3. Mandibular hardware without complication although difficult to evaluate with motion artifact. 4. Subacute fixated fractures of the left mandibular parasymphyseal region, ramus, extending into the base of the left coronoid. This fracture traverses the left alveolar canal. 5. Mild sphenoid and ethmoid paranasal sinus disease. No mastoid or middle ear fluid. Electronically signed by: Manan Mejia MD 07/09/2024 01:44 PM EDT RP
== END 2024-04-29 17:03 | disposition home or self-care (01) ==
LOC: HO.CT 17:02
PROVIDERS: PCP Internal Medicine; Visit Provider Internal Medicine
DX: M84.48XD Pathological fracture, other site, subsequent encounter for fracture with routine healing (principal); R68.84 Jaw pain; G89.29 Other chronic pain
CPT/HCPCS: 70486

== ENCOUNTER → 2024-04-29 17:04 | Outpatient (BNV) | payer OTHER, SELFPAY | PROVIDERS: PCP Internal Medicine; Visit Provider Radiology Diagnostic Radiology | DX: S02.609A Fracture of mandible, unspecified, initial encounter for closed fracture (principal) | CPT/HCPCS: 70486 ==

== ENCOUNTER 2024-07-27 14:50 | Outpatient (AMB) | payer OTHER, SELFPAY ==
[2024-07-27 14:52] VITALS: BP 120/78; PULSE 71; O2SAT 98; BMI 24.9
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
== END 2024-07-27 15:34 | disposition home or self-care (01) ==
PROVIDERS: PCP Internal Medicine; Visit Provider Internal Medicine
DX: E78.2 Mixed hyperlipidemia (principal); R56.9 Unspecified convulsions; R68.84 Jaw pain; G89.29 Other chronic pain; G57.71 Causalgia of right lower limb; K21.9 Gastro-esophageal reflux disease without esophagitis; E55.9 Vitamin D deficiency, unspecified; F17.200 Nicotine dependence, unspecified, uncomplicated

== ENCOUNTER → 2024-07-27 14:50 | Outpatient (BNVA) | payer OTHER, SELFPAY | PROVIDERS: PCP Internal Medicine; Visit Provider Internal Medicine | DX: E78.2 Mixed hyperlipidemia (principal); R56.9 Unspecified convulsions; R68.84 Jaw pain; G89.29 Other chronic pain; K21.9 Gastro-esophageal reflux disease without esophagitis; E55.9 Vitamin D deficiency, unspecified; F17.200 Nicotine dependence, unspecified, uncomplicated; Z71.6 Tobacco abuse counseling | CPT/HCPCS: 96127; 99212 ==

== ENCOUNTER 2024-11-29 13:41 | Outpatient (AMB) | payer OTHER, SELFPAY ==
[2024-11-29 13:52] VITALS: BP 124/80; PULSE 68; O2SAT 99; BMI 25.2
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
== END 2024-11-29 14:29 | disposition home or self-care (01) ==
LOC: HO.HMCH 13:42
PROVIDERS: PCP Internal Medicine; Visit Provider Internal Medicine
DX: Z00.00 Encounter for general adult medical examination without abnormal findings (principal); R56.9 Unspecified convulsions; R68.84 Jaw pain; E78.2 Mixed hyperlipidemia; Z68.25 Body mass index [BMI] 25.0-25.9, adult; G89.29 Other chronic pain; G57.71 Causalgia of right lower limb; K21.9 Gastro-esophageal reflux disease without esophagitis; E55.9 Vitamin D deficiency, unspecified; F17.200 Nicotine dependence, unspecified, uncomplicated

== ENCOUNTER → 2024-11-29 13:41 | Outpatient (BNVA) | payer OTHER, SELFPAY | PROVIDERS: PCP Internal Medicine; Visit Provider Internal Medicine | DX: Z00.00 Encounter for general adult medical examination without abnormal findings (principal); E78.2 Mixed hyperlipidemia; R56.9 Unspecified convulsions; R68.84 Jaw pain; G57.71 Causalgia of right lower limb; K21.9 Gastro-esophageal reflux disease without esophagitis; E55.9 Vitamin D deficiency, unspecified; F17.200 Nicotine dependence, unspecified, uncomplicated; Z71.6 Tobacco abuse counseling | CPT/HCPCS: 96127; 99212; 99395 ==

== ENCOUNTER 2025-01-05 14:12 | Outpatient (AMB) | payer OTHER, SELFPAY ==
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
--- OUTSIDE RECORDS SUMMARY | 2025-01-05 17:03 | XMS_ITS | Clinical Summary ---
Author Organization [employer] [facility] ity Address [address] [place] [address] Care Team Providers Care Server Security Administrator Name Role Phone Unavailable Primary Care Provider Unavailabl e Social History Tobacco Use Types Packs/Day Years Used Date Smoking Tobacco: Never Assessed Sex and Gender Information Value Date Recorded Sex Assigned at Not on file Legal Sex Male 2:32 PM EST Gender Identity Not on file Sexual Orientation Not on file Plan of Treatment Health Maintenance Due Date Last Done Comments DTaP,Tdap,and Td Vaccines (1 - Tdap) 02/11/2008 Hepatitis B Vaccines (1 of 3 - 19+ 3-dose series) 02/11/2008 COVID-19 Vaccine (2023-2 5 season) 2024 Influenza Vaccine (Season Ended) 2025 HIB Vaccines Aged Out No longer eligi ble based on patient's age to complete this topic HPV Vaccines Aged Out No longer eligi ble based on patient's age to complete this topic Hepatitis A Vaccines Aged Out No long er eligible based on patient's age to complete this topic IPV Vaccines Aged Out No longer eligi ble based on patient's age to complete this topic MMR Vaccines Aged Out No longer eligi ble based on patient's age to complete this topic Meningococcal ACWY Vaccine Aged Out N o longer eligible based on patient's age to complete this topic Meningococcal B Vaccine Aged Out No l onger eligible based on patient's age to complete this topic Pneumococcal Vaccine: Pediat rics (0 to 5 Years) and At-Risk Patients (6 to 64 Years) Aged Out No longer eligible b ased on patient's age to complete this topic RSV Immunization Patients Un karel 20 months Aged Out No longer eligible b ased on patient's age to complete this topic Varicella Vaccines Aged Out No longer eligible based on patient's age to complete this topic
--- OUTSIDE RECORDS SUMMARY | 2025-01-05 17:03 | XMS_ITS | Clinical Summary ---
Author Organization [employer] Address [address] [place] [address] Care Team Providers Care Network Relay Tester Name Role Phone Pricilla Childers MD Primary Care Provider + Social History Tobacco Use Types Packs/Day Years Used Date Smoking Tobacco: Never Assessed Sex and Gender Information Value Date Recorded Sex Assigned at Male 07/15/2022 10:34 AM EDT Legal Sex Male 10:34 AM EDT Gender Identity Choose not to disclose 10:34 AM EDT Sexual Orientation Choose not to disclose 2021 10:34 AM EDT Last Filed Vital Signs Vital Sign Reading Time Taken Comments Blood Pressure 107/68 08/20/2021 12:12 AM EST Pulse 77 08/20/2021 12:12 AM EST Temperature - - Respiratory Rate - - Oxygen Saturation - - Inhaled Oxygen Concentration - - Weight 72.6 kg (160 lb) 08/20/2021 12:12 AM EST Height 160 cm (5' 3 ) 08/20/2021 12:12 AM EST Body Mass Index 28.34 08/20/2021 12:12 AM EST Plan of Treatment Health Maintenance Due Date Last Done Comments Depression Screening 1989 HIV Screening 1989 Lipid Panel 1989 SDOH Screening 1989 Alcohol/Substance Use Screening 2001 Tobacco Screening 2001 Family Planning (PISQ) 02/11/2004 Hepatitis C Screening 2007 DTaP/Tdap/Td Vaccines (1 - Tdap) 02/11/2008 Hepatitis B Vaccines (1 of 3 - 19+ 3-dose series) 02/11/2008 COVID-19 Vaccine ( - 2023-2 5 season) 2024 Influenza Vaccine (#1) 2024 Zoster Vaccines (1 of 2) 2039 RSV Patients and Pa tients Aged 60 years or older (1 - 1-dose 75+ series) 02/11/2064 HIB Vaccines Aged Out No longer eligi [...] patient's age to complete this topic Meningococcal Vaccine Aged Out No camille evens eligible based on patient's age to complete this topic Pneumococcal Vaccine: Pediat rics (0 to 5 Years) and At-Risk Patients (6 to 49) Years) Aged Out No longer eligible b ased on patient's age to complete this topic RSV under 20 months Aged Out No longe r eligible based on patient's age to complete this topic Rotavirus Vaccines Aged Out No longer eligible based on patient's age to complete this topic Insurance [facility] Care Teams Network Relay Tester Relationship Specialty Start Date End Date Pricilla Childers MD [address] [place] [id number] PCP - General Family Medicine 08/18/18
== END 2025-01-05 14:42 | disposition home or self-care (01) ==
LOC: HO.HUSH 14:12
PROVIDERS: PCP Internal Medicine; Visit Provider Urology
DX: R32 Unspecified urinary incontinence (principal); R35.1 Nocturia
CPT/HCPCS: 99214

== ENCOUNTER → 2025-01-05 14:12 | Outpatient (BNVA) | payer OTHER, SELFPAY | PROVIDERS: PCP Internal Medicine; Visit Provider Urology | DX: N52.9 Male erectile dysfunction, unspecified (principal); R32 Unspecified urinary incontinence; R35.1 Nocturia | CPT/HCPCS: 51798; 99212 ==